=== PATIENT | male | born 1935 | race Caucasian/White ===

== ENCOUNTER → 2018-06-20 | Day surgery (SDC) | payer OTHER ==
[2018-05-29 08:28] VITALS: Ht 172.7 cm; Wt 77.3 kg
[~2018-06-20] VITALS: Ht 172.7 cm; Wt 77.3 kg
[~2018-06-20] MED LIST: 500ML BSS 0.3ML EPI 1:1000PF IRRIG ONE; ACETAMINOPHEN 325 MG TAB PO PRN; AMVISC PLUS 0.8ML SYRINGE INT OCU ONE; ATROPINE SULFATE 0.1 MG/ML 5ML SYR IV PRN; BSS FLUSH ONE; ENDOCOAT 0.85ML SYRINGE INT OCU ONE; EpHEDrine SULFATE INJ 50 MG/ML AMP IV PRN; EpINEphrine INJ 1MG/ML AMP 1 MG/ML AMP ONE; LACTATED RINGER'S 1000ML 500 ML IV SCH; LIDOCAINE 4% OP SOLN DROP CHARGE ONE; LIDOCAINE 4% OP SOLN DROP CHARGE OPR SCH; LIDOCAINE HCL 1% MPF 2 ML VIAL ONE; MIDAZOLAM HCL 1 MG/ML 2ML VIAL ONE; MIX: 4ML BSS 1ML EPI 1:1000 PF TOP ONE; MOXIFLOXACIN OPH SOLN PER DROP CHARGE ONE; POVIDONE-IODINE OP SOLN 30 ML BTL ONE; PROPARACAINE 0.5% OP SOLN PER DROP CHARGE OPR SCH; TOBRAMYCIN/DEXAMETHASONE OPH OINT PER APPLN CHARGE ONE; VITACAP26 PO; VITAMIN D PO; VITAMIN E PO
--- NOTE | 2018-06-20 06:38 | History & Physical Bridge - SC ---
H&P Re-Evaluation Bridge Note: I have examined the patient, reviewed the History & Physical and in the interval since the performance of the History & Physical I have noted the following changes of clinical significance: No changes noted
[2018-06-20] MEDS: PHENYLEPHRINE HCL 2.5% OP SOLN PER DROP CHARGE OPR SCH ×3 (06:48→06:58)
[2018-06-20] MEDS: TROPICAMIDE 1% OP SOLN PER DROP CHARGE OPR SCH ×3 (06:49→06:59)
[2018-06-20] MEDS: CYCLOPENTOLATE HCL 1% OP SOLN PER DROP CHARGE OPR SCH ×3 (06:50→07:00)
[2018-06-20] MEDS: MOXIFLOXACIN OPH SOLN PER DROP CHARGE OPR SCH ×3 (06:51→07:01)
--- NOTE | 2018-06-20 07:57 | [facility] Post Operative Brief Note ---
Immediate Operative Summary Operative Date Jun 20, 2018. Pre-Operative Diagnosis Right Eye Cataract Post-Operative Diagnosis same as preop Procedure(s) Performed Right Cataract Phacoemulsification With Intraocular Lens Implant Surgeon Dr. Hurtado Applications Engineering Manager Surgeon(s) none Estimated Blood Loss 0ml Findings Consistent with Post-Op Diagnosis Specimens none per surgeon Anesthesia Type MAC Complication(s) none Disposition Accompanied Pt To Recover: no Disposition:
--- NOTE | 2018-06-20 07:58 | [facility] Operative Report ---
Operative Report Date of Service Jun 20, 2018. Operative Report DATE OF OPERATION: 06/18/18 PREOPERATIVE DIAGNOSIS: Senile nuclear cataract, right eye POSTOPERATIVE DIAGNOSIS: Senile nuclear cataract, right eye PROCEDURE PERFORMED: Phacoemulsification with intraocular lens implantation, right eye SURGEON: Dr. Jayson Hurtado ANESTHESIA: Topical with 1% intracameral lidocaine and monitored anesthesia care COMPLICATIONS: None DESCRIPTION OF PROCEDURE: After positively identifying the patient both verbally and by wristband in the preoperative area, the right eye was marked as the operative eye. The patient was then brought back to the operating room by the anesthesia and nursing staff where they were given a drop of Lidocaine and betadine into the operative eye. They were then sterilely prepped and draped in the standard fashion typical for ophthalmic surgery. Steri-strips were placed along the upper eyelids to keep the lashes back, and a lid speculum was placed into the operative eye. At this point, a documented time out was performed with members of the ophthalmology, nursing, and anesthesia staffs all agreeing upon the correct patient, correct location for surgery, correct procedure, and correct type and power of intraocular lens to be implanted. The microscope was then swung into position. First, a paracentesis wound was made using a sideport blade. Then, in sequence, 1% preservative-free lidocaine followed by Endocoat viscoelastic was injected into the anterior chamber. Next , the main incision was made with a keratome blade in triplanar fashion. A sharp cystotome was introduced into the eye and used to create a tear in the anterior capsule, which was directed into a continuous curvilinear capsulorrhexis using Utrata forceps. Hydrodissection was then performed with BSS on a flat-tip cannula. Next, the phacoemulsification handpiece was introduced into the eye and used to remove the nucleus in a [id number] fashion. This was done without complication and then the irrigation-aspiration handpiece was introduced into the eye and used to remove all remaining cortical and epinuclear material. Amvisc was then injected into the anterior chamber as well as into the capsular bag and using the lens injector system, an MX60 22.5 D lens, serial number [id number], and expiration date 01/2021 was injected into the capsular bag and rotated into the correct position. Next, the irrigation- aspiration handpiece was used to remove all remaining Amvisc. BSS was used to hydrate the main wound, and then BSS was injected into the paracentesis site to reach physiologic pressure and then the main wound was checked and found to be watertight. The patient was given drops of Vigamox and Tobradex ointment into the operative eye, and then the surrounding area was cleaned and dried. A clear plastic shield was placed over the eye and the patient was then sat up and taken from the operating room by the anesthesia staff having tolerated the procedure well and suffering no complications. DISPOSITION: The patient was returned to the recovery room in stable condition. I attest to the content of the Intraoperative Record and any orders documented therein. Any exceptions are noted below.
--- NOTE | 2018-06-20 07:59 | Discharge Instructions-SurgCtr ---
Discharge Instructions Date of Service Jun 20, 2018. Visit Reason for Visit: Cataract Right Eye Discharge Discharge Diagnosis / Problem: right cataract Discharge Goals Goal(s): Decrease discomfort, Improve function Activity Recommendations Activity Limitations: as noted below Anesthesia . Post Anesthesia Instructions: If you have had General Anesthesia or IV Sedation: * Do not drive today. * Resume driving when surgeon permits. * Do not make important decisions or sign legal documents today. * Call surgeon for: 1. Temperature elevations greater than 101 degrees F. 2. Uncontrollable pain. 3. Excessive bleeding. 4. Persistent nausea and vomiting. 5. Medication intolerance (nausea, vomiting or rash). * For nausea and vomiting use only clear liquids such as: tea, soda, bouillon until nausea subsides, then gradually increase diet as tolerated. * If you have any concerns or questions, call your surgeon's office. If physician is unavailable and it is an emergency, call 911 or go to the nearest emergency room. . Instructions / Follow-Up Instructions / Follow-Up ACTIVITY RECOMMENDATIONS: * Light activities. * You may walk outside, read, watch television. * You may notice redness on the white part of the eye and some blurry vision - this is normal. MEDICATIONS: Resume previous medications unless instructed otherwise by your surgeon. Start all eye drops at 10 am today: * Eye drops (today): Prednisone - one drop in operative eye every 2 hours while awake Ofloxacin - one drop in operative eye every 2 hours while awake Ketorolac - one drop in operative eye daily SPECIAL CARE INSTRUCTIONS: * Tape plastic shield over eye to sleep at night. Call your doctor at with any concerns or problems. FOLLOW UP VISIT: Follow-up with Dr Hurtado at [facility] as scheduled. Diet Recommendations Home Diet: no limitations Procedures Procedures Performed: Right Cataract Phacoemulsification With Intraocular Lens Implant Pending Studies Studies pending at discharge: no Medical Emergencies . Who to Call and When: Medical Emergencies: If at any time you feel your situation is an emergency, please call 911 immediately. . Non-Emergent Contact Non-Emergency issues call your: Surgeon . . "Provider Documentation" section prepared by Jayson Hurtado. .
--- NOTE | 2018-06-20 08:20 | Anesthesia Progress Nt - [facility] ---
Anesthesia Post Op Note Date & Time Jun 20, 2018 at 08:20 Vital Signs Pain Intensity: 0 Vital Signs Past 12 Hours Date Time Temp Pulse Resp B/P (MAP) Pulse Ox O2 Delivery O2 Flow Rate FiO2 06/20/18 08:05 37 61 16 146/80 (102) 98 Room Air 06/20/18 06:42 36.6 69 18 152/96 (114) 95 Room Air Notes Mental Status: alert / awake / arousable, participated in evaluation Pt Amnestic to Procedure: Yes Nausea / Vomiting: adequately controlled Pain: adequately controlled Airway Patency, RR, SpO2: stable & adequate BP & HR: stable & adequate Hydration State: stable & adequate Anesthetic Complications: no major complications apparent
[2018-06-20 08:24] VITALS: BP 151/84; PULSE 56; O2SAT 96
== END | disposition home or self-care (01) ==
LOC: X.SURG 06:34
PROVIDERS: ATTEND Ophthalmology
DX: H25.11 Age-related nuclear cataract, right eye (principal); Z86.718 Personal history of other venous thrombosis and embolism; M19.90 Unspecified osteoarthritis, unspecified site

== ENCOUNTER 2025-06-06 09:35 | Observation (INO) ==
--- NOTE | 2025-06-06 09:48 | Emergency Department Note ---
Impression & Plan Vertiginous syndrome, Ambulatory dysfunction ED Provider Note Name: SONIA ALEXIS Age: 89 Sex: Male Arrives Via: Ambulance Informant: patient, family ED Provider: Clay oGnzalez MD Chief Complaint: Dizziness Impression: As per impressions above Medical Decision Makin-year-old relatively healthy male with no significant history arrives for acute onset sudden nature dizziness. Admits he woke up and as he turned over he realized he was severely vertiginous. Spinning world. He has never had any vertigo issues before. On examination he does not have any acute neurologic deficits, however on repeat evaluation patient is complaining of inability to use his right arm properly. He does have swelling of the right hand but that is from a recent injury. I was able to lift his arm he is able to move his fingers just as it does not feel right. After moving the arm around a bit though he seems to improve regained use and it was feeling better again. Family also notes that has been having trouble getting to the bathroom while in the department. He was given some meclizine with really minimal improvement. CT of the head with angiography is was unremarkable. Laboratory workup is all unremarkable. While does seem less likely this is stroke given the findings the patient has never had any symptoms like this before his age and the fact that he is having some ambulatory issues I think it reasonable to hospitalize to further rule out stroke and continue monitoring. Patient and his family are comfortable with this plan. Triage/Nursing Notes reviewed by Me External Chart Review by me: No recent external chart available Differential:Benign positional vertigo, dehydration, hypovolemia, anemia, tumor, infection, hypoglycemia, electrolyte abnormalities, cardiac sources, intracerebral event, toxicologic, neurologic, as well as other pathologies. Vital Signs: reviewed and remarkable for hypertension did improve while in department Interventions: Meclizine p.o., normal saline bolus Labs:ED labs Reviewed by me and remarkable for no significant abnormalities Imaging:CT of the head without contrast as per my informal interpretation reveals no intracranial hemorrhage or mass effect. Confirmed by radiologist. EKG:As per my interpretation. Indication strokelike symptoms. Sinus bradycardia 58 bpm with 414 QTc. No ectopy no ischemia. EKG from September 11, 2023 is unchanged. Cardiac/Tele Monitoring: Cardiac Monitoring: An Order was placed for continuous cardiac monitoring. The monitor shows a rate of 60 with a normal sinus rhythm. Consults:Discussed with hospital service for further management Plan: Disposition:Hospitalization. Condition: Fair History of Present Illness: Patient arrives for evaluation of acute dizziness. Patient notes he awoke this morning while laying in bed he turned on his right side and immediately was hit with severe spinning feeling. Notes he felt like he was on a [place] wheel. If he lays still the symptoms eventually go away but as soon as he starts moving he begins to have severe dizziness again. He denies any headache, visual disturbance otherwise, stroke like symptoms such as slurred speech or weakness of arms or legs, fevers, chills, nausea, vomiting, back pain, abdominal pain or other concerning falls or traumas. Patient has no history of stroke. He notes he has no significant medical issues and takes no medications on a daily basis. Patient does have swelling of the right hand. He states is been consistently swollen since he injured it a month ago. It has improved significantly though and is not as bruised as it was. Past Medical History: None Home Medications: None Allergies: No known drug allergy Vitals:Blood Pressure: 173/86, Pulse 59, RR 18, T 36.7C, O2 99% on RA Physical Exam: GENERAL: Patient is well appearing and in no acute distress. HEAD: AT/NC EENT: Normal left TM, unable to visualize right TM. Equal pupils bilaterally. Slight nystagmus both directions. RESPIRATORY: No dyspnea. Clear to auscultation and equal bilaterally. CARDIOVASCULAR: Regular rate and rhythm.No murmur appreciated. EXTREMITIES: Patient does have some mild edema to the top of the right hand. No redness, warmth, tenderness palpation. Healing laceration over palm of hand. Normal motion all extremities, no cyanosis, no edema. NEUROLOGIC: Alert and oriented. No focal neurologic deficits appreciated SKIN: No rash, no jaundice, no diaphoresis. PSYCH: Appropriate GCS: 15 ED Course: Times/Reassessments: Patient is feeling well however he is still having some difficulty sitting up especially even going to the bathroom feeling very off stable/balance. Clay Gonzalez MD Past Med/Surg History Problem List (Updated 06/06/25 @ 20:39 by Clay Gonzalez MD) Ambulatory dysfunction (Acute) Vertiginous syndrome (Acute) BPPV (benign paroxysmal positional vertigo) Encounter for pre-operative examination No known health problems (Chronic 06/03/13) Medical History Left cataract Lyme disease H/O 2012 Surgical History History of appendectomy History of tooth extraction BOTTOM TEETH REMOVED H/O right cataract extraction R cataract on 06/20/18- given 2mg of versed without issues Family History (Updated 06/06/25 @ 15:53 by Clay Akhtar MD, PhD) Father , at 89 years of age from natural causes. No problems noted. Mother , at 60 years of age from hepatocellular carcinoma in the absence of ETOH (ab)use. No problems noted. Social History (Updated 06/06/25 @ 15:54 by Clay Akhtar MD, PhD) Smoking Status: Never smoker Second Hand Exposure: No; Do You Dip or Chew Tobacco: No; Hx Alcohol Use: No Hx Substance Use: No Preferred Language: Mohawk Communication Ability: Effective Fire Fighter Required: No Beliefs That Will Affect Care: None marital status: Current Living Situation: Spouse current occupational status: retired How many Children do You have: 2 How many Children do You have Comment: 1 son (51yrs) and 1 daughter (56yrs), alive and well. Feels Safe at Home: Yes Assistive Devices: Glasses Allergies Allergies Allergy/AdvReac Type Severity Reaction Status Date / Time No Known Allergies Allergy Verified 08/01/18 09:37 Home Meds Home Medications Medication Instructions Recorded Confirmed cholecalciferol (vitamin D3) 50 2,000 unit PO QPM 07/26/18 06/06/25 mcg (2,000 unit) capsule (Vitamin D3) Elderberry 1 cap PO DAILY 09/11/23 06/06/25 red beet 0 mg PO DAILY 06/06/25 06/06/25 Results & Data (ED) Vital Signs Vital Signs - 24 hr 06/06/25 09:44 06/06/25 09:52 06/06/25 12:01 Temperature 36.7 C Temperature Source Oral Pulse Rate 59 L Pulse Rate [Apical] 55 L 55 L Respiratory Rate 18 18 18 Respiratory Effort / Characteristics Non-Labored Spontaneous Non-Labored Spontaneous Non-Labored Spontaneous Respiratory Depth Normal Normal Normal Blood Pressure 173/86 H Blood Pressure [Right Arm] 173/86 H 138/73 Blood Pressure Mean 115 Blood Pressure Mean [Right Arm] 115 94 Blood Pressure Position Sitting Blood Pressure Position [Right Arm] Sitting Lying Pulse Oximetry 99 99 98 Oxygen Delivery Method Room Air Room Air Room Air Sepsis Recent Fever Within 48 Hours No Sepsis New/Unexplained Change in Mental Status No Sepsis Action Taken by Nursing No Action Required 06/06/25 12:01 Temperature Temperature Source Pulse Rate 56 L Pulse Rate [Apical] Respiratory Rate Respiratory Effort / Characteristics Respiratory Depth Blood Pressure Blood Pressure [Right Arm] Blood Pressure Mean Blood Pressure Mean [Right Arm] Blood Pressure Position Blood Pressure Position [Right Arm] Pulse Oximetry Oxygen Delivery Method Sepsis Recent Fever Within 48 Hours Sepsis New/Unexplained Change in Mental Status Sepsis Action Taken by Nursing Laboratory Data 06/06/25 09:52 06/06/25 09:52 Lab Results 06/06/25 06/06/25 06/06/25 Range/Units 09:52 09:57 10:34 WBC 7.48 (4.8-10.8) K/ul RBC 4.70 (4.70-6.10) M/uL Hgb 13.9 L (14.0-18.0) g/dl POC Hgb 14.6 (14.0-18.0) g/dl Hct 42.3 (42.0-52.0) % POC Hct 43 (42-52) % MCV 90.0 (80.0-100.0) fL MCH 29.6 (25.0-34.0) pg MCHC 32.9 (32.0-36.0) g/dL RDW Std Deviation 41.1 (36.4-46.3) fL RDW Coeff of Skylar 12.4 (11.5-14.5) % Plt Count 310 (130-400) K/uL MPV 8.5 L (9.4-12.4) fL Immature Gran % (Auto) 0.3 % Neut % (Auto) 71.1 % Lymph % (Auto) 18.4 % Gila % (Auto) 8.6 % Eos % (Auto) 0.9 % Baso % (Auto) 0.7 % Neut # (Auto) 5.32 (1.40-6.50) K/uL Lymph # (Auto) 1.38 (1.20-3.40) K/uL Gila # (Auto) 0.64 H (0.11-0.59) K/uL Eos # (Auto) 0.07 (0.00-0.50) K/uL Baso # (Auto) 0.05 (0.00-0.20) K/uL Immature Gran # (Auto) 0.02 (0.01-0.20) K/uL PT Cancelled 10.8 INR Cancelled 1.0 POC Sodium 139 (135-144) mmol/L Sodium 139 (136-145) mmol/L POC Potassium 3.9 (3.3-5.0) mmol/L Potassium 3.9 (3.5-5.1) mmol/L POC Chloride 105 (101-112) mmol/L Chloride 107 (98-107) mmol/L Carbon Dioxide 25 (21-32) mmol/L POC Total CO2 24 (24-31) mmol/L Anion Gap 7 (3-11) POC Anion Gap 16.0 (16-25) mmol/L POC BUN 21 H (7-18) mg/dl BUN 20 (6-23) mg/dl Creatinine 1.06 (0.6-1.4) mg/dl POC Creatinine 1.1 (0.6-1.3) mg/dl Est Cr Clr Drug Dosing 45.9 ml/min eGFR 67.92 BUN/Creatinine Ratio 18.9 (10-20) Glucose 134 H (70-99(Fasting)) mg/dl POC Glucose (other) 132 H (70-99) mg/dl Estimat Average Glucose 126 mg/dl Hemoglobin A1c 6.0 H (4.5-5.6) % Calcium 9.1 (8.6-10.3) mg/dl POC Ioniz Calcium Ar 1.13 (1.12-1.32) mmol/l Magnesium 2.1 (1.7-2.4) mg/dl Total Bilirubin 1.1 H (0.2-1.0) mg/dl Direct Bilirubin 0.1 (0-0.2) mg/dl AST 32 (13-39) U/L ALT 47 (7-52) U/L Alkaline Phosphatase 54 (34-104) U/L Troponin I High Sens 3.8 (0-20) pg/ml Total Protein 6.4 (6.0-8.3) gm/dl Albumin 3.9 (3.4-5.0) gm/dl TSH 3.410 (0.300-4.500) uIu/ml Urine Color Urine Appearance (Clear) Urine pH (4.5-7.5) Ur Specific [place] (1.000-1.030) Urine Protein (Negative) Urine Glucose (UA) (Negative) Urine Ketones (Negative) Urine Blood (Negative) Urine Nitrite (Negative) Urine Bilirubin (Negative) Urine Urobilinogen (Negative) Ur Leukocyte Esterase (Negative) Urine Comment 06/06/25 Range/Units 11:12 WBC (4.8-10.8) K/ul RBC (4.70-6.10) M/uL Hgb (14.0-18.0) g/dl POC Hgb (14.0-18.0) g/dl Hct (42.0-52.0) % POC Hct (42-52) % MCV (80.0-100.0) fL MCH (25.0-34.0) pg MCHC (32.0-36.0) g/dL RDW Std Deviation (36.4-46.3) fL RDW Coeff of Skylar (11.5-14.5) % Plt Count (130-400) K/uL MPV (9.4-12.4) fL Immature Gran % (Auto) % Neut % (Auto) % Lymph % (Auto) % Gila % (Auto) % Eos % (Auto) % Baso % (Auto) % Neut # (Auto) (1.40-6.50) K/uL Lymph # (Auto) (1.20-3.40) K/uL Gila # (Auto) (0.11-0.59) K/uL Eos # (Auto) (0.00-0.50) K/uL Baso # (Auto) (0.00-0.20) K/uL Immature Gran # (Auto) (0.01-0.20) K/uL PT INR POC Sodium (135-144) mmol/L Sodium (136-145) mmol/L POC Potassium (3.3-5.0) mmol/L Potassium (3.5-5.1) mmol/L POC Chloride (101-112) mmol/L Chloride (98-107) mmol/L Carbon Dioxide (21-32) mmol/L POC Total CO2 (24-31) mmol/L Anion Gap (3-11) POC Anion Gap (16-25) mmol/L POC BUN (7-18) mg/dl BUN (6-23) mg/dl Creatinine (0.6-1.4) mg/dl POC Creatinine (0.6-1.3) mg/dl Est Cr Clr Drug Dosing ml/min eGFR BUN/Creatinine Ratio (10-20) Glucose (70-99(Fasting)) mg/dl POC Glucose (other) (70-99) mg/dl Estimat Average Glucose mg/dl Hemoglobin A1c (4.5-5.6) % Calcium (8.6-10.3) mg/dl POC Ioniz Calcium Ar (1.12-1.32) mmol/l Magnesium (1.7-2.4) mg/dl Total Bilirubin (0.2-1.0) mg/dl Direct Bilirubin (0-0.2) mg/dl AST (13-39) U/L ALT (7-52) U/L Alkaline Phosphatase (34-104) U/L Troponin I High Sens (0-20) pg/ml Total Protein (6.0-8.3) gm/dl Albumin (3.4-5.0) gm/dl TSH (0.300-4.500) uIu/ml Urine Color Yellow Urine Appearance Clear (Clear) Urine pH 8.5 H (4.5-7.5) Ur Specific [place] 1.040 H (1.000-1.030) Urine Protein Negative (Negative) Urine Glucose (UA) Negative (Negative) Urine Ketones Negative (Negative) Urine Blood Negative (Negative) Urine Nitrite Negative (Negative) Urine Bilirubin Negative (Negative) Urine Urobilinogen Negative (Negative) Ur Leukocyte Esterase Negative (Negative) Urine Comment Administered Medications Discontinued Medications Sodium Chloride (Nss) 1,000 mls @ 999 mls/hr IV .Q1H1M ONE Stop: 06/06/25 10:43 Last Infusion: 06/06/25 15:44 Dose: Infused Documented By: Admin: 06/06/25 10:00 Dose: 999 mls/hr Documented By: LEE Ioversol (Optiray 320 125ml) 120 ml IV ONCE ONE Stop: 06/06/25 10:13 Last Admin: 06/06/25 10:13 Dose: 120 ml Documented By: ZEENAT Meclizine HCl (Meclizine Hcl 25 Mg Tab) 25 mg PO NOW STA Stop: 06/06/25 09:44 Last Admin: 06/06/25 10:00 Dose: 25 mg Documented By: LEE Imaging Data Radiologist's Impression: Head CTA 06/06/25 09:43 CT angio head wo/w CLINICAL HISTORY: acute vertiginous symptoms, concern stroke/dissect COMPARISON STUDY: None FINDINGS: Noncontrast head CT: No intracranial hemorrhage seen. No mass effect, midline shift, or hydrocephalus. No skull fracture seen. Visualized paranasal sinuses and mastoid air cells are clear. CTA: The left vertebral artery is dominant and the right vertebral artery is diminutive beyond PICA, anatomic variant. Distal vertebral arteries and distal internal carotid arteries show no significant narrowing or occlusion. Basilar artery is widely patent. Anterior, middle, and posterior cerebral arteries are patent bilaterally. No intracranial aneurysm seen. Cerebral venous sinuses opacify normally. IMPRESSION: 1. No acute findings. 2. No significant arterial narrowing or occlusion seen at the brain. ACT 112: Negative or not required by law. Electronically signed by: Stevenson Kahn M.D. 06/06/2025 10:28 AM Neck CTA 06/06/25 09:43 CT ANGIOGRAPHY OF THE NECK WITH CONTRAST CLINICAL HISTORY: acute vertiginous symptoms, concern stroke/dissection COMPARISON STUDY: No previous studies for comparison. Technique: CT angiography of the carotid and vertebral arteries was obtained using [employer] and 3D reconstruction on an independent workstation. NASCET criteria was utilized. Automated exposure control was utilized for the study. A dose lowering technique was utilized adhering to the principles of ALARA. Findings: Visualized lung apices are unremarkable. There is no cervical lymphadenopathy. There are no cervical spine fractures. There is minimal plaque within the proximal left internal carotid artery without stenosis. There is moderate noncalcified plaque within the mid cervical left internal carotid artery without stenosis. 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 The left vertebral artery is dominant. No vertebral artery dissection is present. CTA of the head will be reported separately. There is moderate stenosis of the intracranial portion of the right vertebral artery. IMPRESSION: 1. No stenoses within the bilateral common carotid, cervical internal carotid or cervical vertebral arteries. 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 2. No vertebral artery dissection. 3. 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 A short segment dissection is considered less likely. ACT 112: Negative or not required by law. Electronically signed by: Dwight Davila M.D. 06/06/2025 10:38 AM Discharge Plan Visit Data Chief Complaint: Dizziness Stated Complaint: DIZZINESS, NAUSEA ED Provider: Clay Gonzalez Discharge Problem: Vertiginous syndrome, Ambulatory dysfunction Patient Disposition: Admitted As Inpatient Condition: Fair Discharge Instructions Interventions: ED Discharge Assessment Last Done: 06/06/25 15:46
[2025-06-06] MEDS: SODIUM CHLORIDE 0.9% 1,000 ML IV ONE (10:00)
[2025-06-06] MEDS: MECLIZINE HCL 25 MG TAB PO STA (10:00)
[2025-06-06 10:08] LABS: Hematocrit (blood only) 42.3 % (42.0-52.0); Hemoglobin 13.9 g/dl (14.0-18.0); Immature Granulocytes # (auto) 0.02 K/uL (0.01-0.20); Immature Granulocytes % (auto) 0.3 %; Mean Corpuscular Hemoglobin 29.6 pg (25.0-34.0); Mean Corpuscular Volume 90.0 fL (80.0-100.0); Platelet Count 310 K/uL (130-400); RDW Standard Deviation 41.1 fL (36.4-46.3); Red Blood Count 4.70 M/uL (4.70-6.10); White Blood Count 7.48 K/ul (4.8-10.8)
[2025-06-06] MEDS: OPTIRAY 320 125ml IV ONE (10:13)
--- NOTE | 2025-06-06 10:29 | CT Scan Report ---
CT angio head wo/w CLINICAL HISTORY: acute vertiginous symptoms, concern stroke/dissect COMPARISON STUDY: None FINDINGS: Noncontrast head CT: No intracranial hemorrhage seen. No mass effect, midline shift, or hydrocephalus . No skull fracture seen. Visualized paranasal sinuses and mastoid air cells are clear. CTA: The left vertebral artery is dominant and the right vertebral artery is diminutive beyond PICA, anatomic variant. Distal vertebral arteries and distal internal carotid arteries show no significant narrowing or occlusion. Basilar artery is widely patent. Anterior, middle, and posterior cerebral art eries are patent bilaterally. No intracranial aneurysm seen. Cerebral venous sinuses opacify normally . IMPRESSION: 1. No acute findings. 2. No significant arterial narrowing or occlusion seen at the brain. ACT 112: Negative or not required by law. Electronically signed by: Stevenson Kahn M.D. 06/06/2025 10:28 AM
[2025-06-06 10:30] LABS: Alanine Aminotransferase 47.0 U/L (7-52); Alkaline Phosphatase 54.0 U/L (34-104); Anion Gap 7.0 (3-11); Blood Urea Nitrogen 20.0 mg/dl (6-23); Calcium 9.1 mg/dl (8.6-10.3); Carbon Dioxide 25.0 mmol/L (21-32); Chloride 107.0 mmol/L (98-107); Creatinine Clr Calc Pharmacy 45.9 ml/min; Glucose 134.0 mg/dl (70-99(Fasting)); Magnesium 2.1 mg/dl (1.7-2.4); Potassium 3.9 mmol/L (3.5-5.1); Sodium 139.0 mmol/L (136-145)
[2025-06-06 10:33] LABS: Bilirubin,Total 1.1 mg/dl (0.2-1.0)
[2025-06-06 10:38] LABS: Total Protein 6.4 gm/dl (6.0-8.3)
--- NOTE | 2025-06-06 10:40 | CT Scan Report ---
CT ANGIOGRAPHY OF THE NECK WITH CONTRAST CLINICAL HISTORY: acute vertiginous symptoms, concern stroke/dissection COMPARISON STUDY: No previous studies for comparison. Technique: CT angiography of the carotid and vertebral arteries was obtained using [employer] and 3D rec onstruction on an independent workstation. NASCET criteria was utilized. Automated exposure control was utilized for the study. A dose lowering technique was utilized adhering to the principles of ALA RA. Findings: Visualized lung apices are unremarkable. There is no cervical lymphadenopathy. There are no cervical spine fractures. There is minimal plaque within the proximal left internal carotid artery w ithout stenosis. There is moderate noncalcified plaque within the mid cervical left internal carotid artery without stenosis. 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 The left vertebral artery is dominant. N o vertebral artery dissection is present. CTA of the head will be reported separately. There is moder ate stenosis of the intracranial portion of the right vertebral artery. IMPRESSION: 1. No stenoses within the bilateral common carotid, cervical internal carotid or cervical vertebral a rteries. 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 2. No vertebral artery dissection. 3. 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 A short segment disse ction is considered less likely. ACT 112: Negative or not required by law. Electronically signed by: Dwight Davila M.D. 06/06/2025 10:38 AM
[2025-06-06 10:45] LABS: Thyroid Stimulating Hormone 3.41 uIu/ml (0.300-4.500)
[2025-06-06 11:13] LABS: INR 1.0 (0.9-1.1); Prothrombin Time 10.8 Seconds (9.0-12.0)
[2025-06-06 11:21] LABS: Appearance Urine Clear (Clear); Glucose Urine UA Negative (Negative)
[2025-06-06] MEDS ORDERED: ACETAMINOPHEN 325 MG TAB PO PRN (12:38)
[2025-06-06 13:42] LABS: Hemoglobin A1C 6.0 % (4.5-5.6)
--- NOTE | 2025-06-06 15:17 | History & Physical Report ---
Date of Service June 06, 2025 Assessment & Plan (1) BPPV (benign paroxysmal positional vertigo): Plan: As above in the HPI. History of Present Illness Chief Complaint: "I woke up at 6:00am today (06/06/2025). I was in bed and I turned from my left side to my right side. All of a sudden, the room was spinning [id number] very very fast. I closed my eyes and the spinning stopped. I opened my eyes and the spinning started up again. The spinning lasted for 1 minute. Then it went away. I never felt like that before in my life. I then got up and walked to the hallway. I had to hold the wagner for support; otherwise, I would have fallen down. I did not fall down. I told my that I needed to go to the hospital to get checked out. So, my called the ambulance and the ambulance brought me to [facility]. I don't know what caused this fast spinning in the first place. I felt completely well the day before and last night (06/05/2025, 9:00pm) when I went to bed. I didn't eat any food or drink since last night (06/05/2025, 6:00pm). But I don't feel hungry at all. I have not had an appetite for a long time now; my is sick and I worry about her a lot. Maybe that is why I don't feel hungry. I can smell the food and I can taste the food just fine, no problems, and the food smells and tastes great, but it does not make me want to eat. I have only lost 5 pounds in the past year. I don't sweat at night. I only sweat at daytime if I am exerting myself outside and it is hot or warm outside. Maybe I am a little dehydrated. Could that have caused the room to spin this morning? I came to [facility] ER around 9:30am today. I felt that the room spinning was slower in [facility]. I did not have any nausea or vomit in [facility]. I did not have any nausea or vomit in my home, where the room spinning was very fast. The only thing different after I got to [facility] ER and int o this bed (cf., [facility] ER bed #C11B) was that I had this headache all over my head, left and right, front and back of my head, and it lasted about 1 minute. Then it went away. My vision was fine with my glasses on. I did not have any blurry vision. I was not seeing double in [facility] ER or at home this morning (06/06/2025, 6:00am) when the room was spinning very fast. My speech was fine and I could talk normally to my , no problem there. I am right-handed, and my right hand is swollen still and not as strong since I fell last month and had to have 16 stitches in the palm of my right hand, and I had to twist my fingers back to their normal position after they got bent out of shape when I fell down, but other than that, I can do everything with my right hand like I always have, including eating with a spoon, holding a cup, writing with a pen, putting on my clothes and taking them off, going to the bathroom, getting up from a chair or my bed. I don't use a cane or walker. I can still drive a car. I just want to make sure that I did not have a stroke, that a stroke was causing the room to spin so fast this morning (06/06/2025, 6:00am)." Primary Care Provider: Tomas Najera 89 years old male with PMH of FULL CODE @ home, overweight with BMI 26.5 (height 170.18 cm; weight 76.8 kg), who takes no medications at home, who reports: "I woke up at 6:00am today (06/06/2025). I was in bed and I turned from my left side to my right side. All of a sudden, the room was spinning [id number] very very fast. I closed my eyes and the spinning stopped. I opened my eyes and the spinning started up again. The spinning lasted for 1 minute. Then it went away. I never felt like that before in my life. I then got up and walked to the hallway. I had to hold the wagner for support; otherwise, I would have fallen down. I did not fall down. I told my that I needed to go to the hospital to get checked out. So, my called the ambulance and the ambulance brought me to [facility] ER. I don't know what caused this fast spinning in the first place. I felt completely well the day before and last night (06/05/2025, 9:00pm) when I went to bed. I didn't eat any food or drink since last night (06/05/2025, 6:00pm). But I don't feel hungry at all. I have not had an appetite for a long time now; my is sick and I worry about her a lot. Maybe that is why I don't feel hungry. I can smell the food and I can taste the food just fine, no problems, and the food smells and tastes great, but it does not make me want to eat. I have only lost 5 pounds in the past year. I don't sweat at night. I only sweat at daytime if I am exerting myself outside and it is hot or warm outside. Maybe I am a little dehydrated. Could that have caused the room to spin this morning? I came to [facility] ER around 9:30am today. I felt that the room spinning was slower in [facility]. I did not have any nausea or vomit in [facility]. I did not have any nausea or vomit in my home, where the room spinning was very fast. The only thing different after I got to [facility] and into this bed (cf., [facility] ER bed #C11B) was that I had this he adache all over my head, left and right, front and back of my head, and it lasted about 1 minute. Then it went away. My vision was fine with my glasses on. I did not have any blurry vision. I was not seeing double in [facility] ER or at home this morning (06/06/2025, 6:00am) when the room was spinning very fast. My speech was fine and I could talk normally to my , no problem there. I am right-handed, and my right hand is swollen still and not as strong since I fell last month (05/08/2025), and had to have 16 stitches in the palm of my right hand done right here in [facility] ER, and I had to twist my fingers back to their normal position after they got bent out of shape--no broken fingers or bones--when I fell down outside my home, but other than that, I can do everything with my right hand like I always have, including eating with a spoon, holding a cup, writing with a pen, putting on my clothes and taking them off, going to the bathroom, getting up from a chair or my bed. I don't use a cane or walker. I can still drive a car. I just want to make sure that I did not have a stroke, that a stroke was causing the room to spin so fast this morning (06/06/2025, 6:00am)." Patient denies antecedent/coincident fevers, chills, diaphoresis, cough, wheeze, sore throat, hemoptysis, chest pains, palpitations, pleurisy, nausea, vomiting, diarrhea, abdominal pain, pelvic pain, hematemesis, hematochezia, melena, hematuria, dysuria, frequency, urgency, visual changes, hearing changes, weakness, falls, syncope, trauma, travel history, sick contacts, or food/drug ingestions novel or new. All other review of systems are reported as negative by the patient on observation date 06/06/2025. In [facility] ER bed #C11B, patient was afebrile @ 36.7 degrees Celsius, HR 59, RR 18, O2 sat 99% on room air, and BP 173/86 (06/06/2025, 9:52am). Exam was negative for nystagmus, gaze paresis, anisocoria, miosis, mydriasis, hyphema, chemosis, scleral injection, conjunctivitis, or pterygium. Sasha-Hallpike / Marty maneuvers did not provoke nystagmus (horizontal, vertical, or rotary), nausea, vomiting, headache, visual changes, etc. Labs in [facility] ER bed #C11B included: WBC 7.48, N71 L18 M9 E1 B1, Hb 13.9, MCV 90.0, MCHC 32.9, platelet 310 (06/06/2025, 9:52am). INR 1.0 (06/06/2025, 9:52am). Na 139, K 3.9, BUN 20, creatinine 1.06, glucose 134, Ca 9.1, Mg 2.1, AST 32, ALT 47, ALK PHOS 54, TBili 1.1 (06/06/2025, 9:52am). HbA1c 6.0% (06/06/2025, 9:52am). TSH 3.410 uIU/mL (06/06/2025, 9:52am). U/A: clear yellow, LE-, nitrite- (06/06/2025, 9:52am). Additional testing in [facility] ER bed #C11B included: CTA head (06/06/2025, 9:43am): 1. No acute findings. 2. No significant arterial narrowing or occlusion seen at the brain. CTA neck (06/06/2025, 9:43am): 1. No stenoses within the bilateral common carotid, cervical internal carotid or cervical vertebral arteries. 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 2. No vertebral artery dissection. 3. 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 A short segment dissection is considered less likely. MRI brain without IV contrast (06/06/2025, 12:38pm): 1. No acute intracranial abnormality. Patient was subsequently placed in OBSERVATION on the hospitalist service @ [facility] on 06/06/2025 with the following diagnosis: 1. Benign paroxysmal positional vertigo (BPPV). To address #1, patient was started on meclizine 25mg PO x 1 dose (06/06/2025, 10:00am) in [facility] ER bed #C11B, and reported no change after receiving this medication. Patient reported that he would wait to see if BPPV recurs before taking another dose of meclizine 25mg as patient does not take any medications at home at all. Allergies Allergy/AdvReac Type Severity Reaction Status Date / Time No Known Allergies Allergy Verified 08/01/18 09:37 Home Medications Medication Instructions Recorded Confirmed Type cholecalciferol (vitamin D3) 50 2,000 unit PO QPM 07/26/18 06/06/25 History mcg (2,000 unit) capsule (Vitamin D3) Elderberry 1 cap PO DAILY 09/11/23 06/06/25 History red beet 0 mg PO DAILY 06/06/25 06/06/25 History Past Med/Surg History Problem List (Updated 06/06/25 @ 15:56 by Clay Akhtar MD, PhD) BPPV (benign paroxysmal positional vertigo) Encounter for pre-operative examination No known health problems (Chronic 06/03/13) Medical History Left cataract Lyme disease H/O 2012 Surgical History History of appendectomy History of tooth extraction BOTTOM TEETH REMOVED H/O right cataract extraction R cataract on 06/20/18- given 2mg of versed without issues Family History (Updated 06/06/25 @ 15:53 by Clay Akhtar MD, PhD) Father , at 89 years of age from natural causes. No problems noted. Mother , at 60 years of age from hepatocellular carcinoma in the absence of ETOH (ab)use. No problems noted. 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 Feels Safe at Home: Yes Assistive Devices: Denture - Lower and Glasses Review of Systems Constitutional: As above in the HPI. Physical Exam Constitutional: General appearance: Comfortable, coherent, cooperative. Wide awake and alert. Not confused, lethargic, or obtunded. Speaks in complete, fluent, and articulate sentences without pause, interruption, cough, or wheeze. HEENT: Normocephalic; atraumatic. EOMI. PERRL. No nystagmus, gaze paresis, anisocoria, miosis, mydriasis, hyphema, chemosis, scleral icterus, conjunctivitis, or pterygium. No otorrhea or rhinorrhea. No pharyngeal discharge. Neck: Supple, no stridor, bruit, goiter, JVD, or HJR. Lymph: No lymphadenopathy. Chest: Symmetric rise and fall with respirations. Non-tender to palpation. Lungs: Clear to auscultation and percussion. No audible wheeze, pectoriloquy, increase in tactile fremitus, or flatness/dullness to percussion at the bases. Heart: RRR, S1S2, no S3 or S4. Grade II/ early systolic murmur @ LLSB without radiation to the carotids, axilla, or back, and which remains invariant in regards to the respiratory cycle. Abd: Soft, non-tender, non-distended. No rebound, guarding, Lovelace's sign, or organomegaly. Bowel sounds auscultated in all 4 quadrants. Ext: No clubbing, cyanosis, or edema. 2+ pedal pulses bilaterally. Skin: No decubitus ulcer, exanthem, or enanthem Neuro: Alert and oriented in regards to person, place, time, or situation. 5/5 motor strength in all 4 extremities, both proximally and distally. Urology: No christensen catheter. No urethral discharge. Psych: No suicidal ideation. No homicidal ideation. Results & Data Results & Data Vital Signs (Past 12 Hours) Vital Signs Temp Pulse Pulse Resp BP BP Pulse Ox 06/06/25 14:42 55 L 18 149/82 H 98 06/06/25 12:01 56 L 06/06/25 12:01 55 L 18 138/73 98 06/06/25 09:52 55 L 18 173/86 H 99 06/06/25 09:44 36.7 C 59 L 18 173/86 H 99 O2 Del Method 06/06/25 14:42 Room Air 06/06/25 12:01 06/06/25 12:01 Room Air 06/06/25 09:52 Room Air 06/06/25 09:44 Room Air Laboratory Results As above in the HPI. Diagnostic Findings As above in the HPI. Medications Administered As above in the HPI. Code Status & VTE Plan VTE Prophylaxis Plan VTE Prophylaxis will be ordered: Yes PG Care Time/CCT Total # of Minutes Spent Total Time Spent with Patient: Total time spent is greater than 50% in coordination of care (as documented) at patient's floor/unit and/or counseling patient: Coding Level of Care Code 45593 INT INP/OBS CARE 2MIN Diagnoses BPPV (benign paroxysmal positional vertigo) H81.10
--- NOTE | 2025-06-06 15:31 | Magnetic Resonance Report ---
MRI OF THE BRAIN WITHOUT IV CONTRAST CLINICAL HISTORY: Dizziness. Vertigo. COMPARISON STUDY: CT of the brain dated 06/06/2025 TECHNIQUE: MRI of the brain was performed utilizing various T1 and T2-weighted sequences in the axial , sagittal, and coronal planes. IV contrast was not administered for this examination. FINDINGS: Brain parenchyma: There is age-related involutional change noting minimal microangiopathic disease. T here is no hemorrhage or mass effect. There is no restricted diffusion to suggest acute ischemia. Gra y-white matter differentiation is preserved. No extra-axial fluid collection is seen. The cerebellar tonsils are normal in configuration. Ventricles, sulci, and cisterns: Prominent secondary to involutional change. Pituitary and sella: Unremarkable. Intracranial vasculature: Normal flow voids are maintained at the skull base. Orbits: The bony orbits are grossly intact. Orbital contents are normal in appearance noting bilatera l ocular lens implants. Sinuses and mastoids: Clear. Calvarium: Unremarkable. Cervical cord: Partially visualized cervical spinal cord is normal in morphology and signal intensity . IMPRESSION: No acute intracranial abnormality. ACT 112: Negative or not required by law. Electronically signed by: Munir Kennedy M.D. 06/06/2025 3:30 PM
[2025-06-06] MEDS: CHOLECALCIFEROL 25 MCG (1000 UNITS) TAB PO SCH (21:23)
[2025-06-06] MEDS: HEPARIN SOD 5,000 UNIT/0.5 ML VIAL SQ SCH (21:24)
--- NOTE | 2025-06-07 06:28 | Electrocardiogram Report ---
Test Reason : Blood Pressure : */* mmHG Vent. Rate : 58 BPM Atrial Rate : 58 BPM P-R Int : 210 ms QRS Dur : 102 ms QT Int : 422 ms P-R-T Axes : 63 52 62 degrees QTcB Int : 414 ms Sinus bradycardia with 1st degree A-V block Septal infarct (cited on or before 11-Sep-2023) Abnormal ECG When compared with ECG of 11-Sep-2023 09:24, No significant change was found Confirmed by Giovanni Robbins ([id number]) on 06/07/2025 6:28:02 AM Referred By: REFERRED SELF Confirmed By: Giovanni Robbins
[2025-06-07 08:00] LABS: Cholesterol 212.0 mg/dl (0-200); HDL Cholesterol 36.0 mg/dl; Triglycerides 118.0 mg/dl (0-150)
--- NOTE | 2025-06-07 11:02 | Hospitalist Progress Note ---
Date of Service June 07, 2025 Assessment & Plan (1) BPPV (benign paroxysmal positional vertigo): Plan: Michel is an 89yo gentleman with no significant PMH who presented to ED and admitted to hospital on 06/06 for vertigo and is being managed for BPPV. - Brain MRI: No acute intracranial abnormality. - CT Head: 1. No acute findings. 2. No significant arterial narrowing or occlusion seen at the brain. - CT Neck: 1. No stenoses within the bilateral common carotid, cervical internal carotid or cervical vertebral arteries. 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 2. No vertebral artery dissection.3. 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 A short segment dissection is considered less likely. - ECG: Sinus bradycardia with 1st degree A-V block. 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 Abnormal ECG. When compared with ECG of 11-Sep-2023 09:24,No significant change was found - Meclizine 25mg PO TID - PT/OT on board - Plan to d/c depending on PT/OT eval. Tomorrow at earliest. 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 A short segment dissection is considered less likely. -incidental finding -pt asx -started on aspirin PO 81mg daily -conservative management for now -consider reimaging in 6 months for comparison and f/u outpatient Plan Dispo: med [facility] VTE Prophylaxis: heparin SQ Diet: Heart healthy Code Status: Full Admission and Anticipated Discharge Date Admission Date: June 06, 2025 Supervising Physician Co-Signing Physician Notes I personally examined the patient and verified all rincon points of history and exam, discussed case, and agree with decision making with Dr Pa feeling about the same - ok at rest but unsteady/dizzy when standing/walking. NOT lightheaded - more that he's moving or the world is moving. imaging discussed. vitals noted nad heent nc at mmm breathing unlabored no accessory muscles good effort peripheral vertigo - PT eval and treat, trial scheduled meclizine, time, home once able to walk safely ICA aneurysm - incidental, asymptomatic. asa and outpt f/u for now. DVT proph - heparin SQ Subjective Michel is an 89yo gentleman with no significant PMH who presented to ED and admitted to hospital on 06/06 for BPPV. No overnight events. Today the pt reports he feels about the same since yesterday. Only had one dose of meclizine without relief. He reports dizziness when standing and ambulating which requires support, relief when laying down. Pt reports his appetite is better and has been eating but states he has been drinking very little. He has a prior hx of a fall outside several weeks ago when he tripped on a branch on the ground that he did not see, which required 16 stitches to the palm of his right hand. He normally ambulates at home without a cane or walker. Denies fever, chills, SOB, CP, palpitations, abdominal pain, diarrhea, constipation, mood changes. Review of Systems Review of Systems: otherwise neg Physical Exam Physical Exam: GA: well groomed, well nourished male in no apparent distress. AAOx3 HEENT: head normocephalic, atraumatic. EOMI. No conjunctival pallor. Dry mucous membranes. RESP: vesicular breath sounds b/l. No wheezes, rhonchi, or rales CARDIOVASCULAR: S1 and S2 heard. No murmurs, rubs, or gallops. Radial pulses 2+ b/l. Cap refill <2sec GI: Normoactive bowel sounds, no tenderness or masses felt to palpation, normal percussion MSK: no gross abnormalities or focal deficits SKIN: warm, dry, normal skin turgor PSYCH: appropriate mood and affect NEURO: no focal deficits. CN 2-12 intact. Results & Data Results & Data Vital Signs (Past 12 Hours) Vital Signs Temp Pulse Resp BP Pulse Ox O2 Del Method 06/07/25 07:20 36.5 C 62 16 146/84 H 97 Room Air 06/07/25 06:31 156/82 H 06/06/25 23:00 36.7 C 67 18 92/51 L 96 Room Air Resident Activity Tracking Resident Involvement: Resident Care Provided Care Provided: Adult Hospital Medicine (1) BPPV (benign paroxysmal positional vertigo) Laterality: unspecified laterality Qualified Code(s): H81.10 - Benign paroxysmal vertigo, unspecified ear
--- NOTE | 2025-06-07 12:13 | Billing Data ---
Date of Service June 07, 2025 Coding Level of Care Code 05977 SUB INP/OBS CARE
[2025-06-07] MEDS: MECLIZINE HCL 25 MG TAB PO SCH (15:26)
[2025-06-08 06:14] LABS: Hematocrit (blood only) 40.9 % (42.0-52.0); Hemoglobin 13.2 g/dl (14.0-18.0); Mean Corpuscular Hemoglobin 29.5 pg (25.0-34.0); Mean Corpuscular Volume 91.5 fL (80.0-100.0); Platelet Count 309 K/uL (130-400); RDW Standard Deviation 42.2 fL (36.4-46.3); Red Blood Count 4.47 M/uL (4.70-6.10); White Blood Count 6.89 K/ul (4.8-10.8)
[2025-06-08] MEDS: ASPIRIN 81 MG ECTAB PO SCH (10:03)
--- NOTE | 2025-06-08 11:39 | Hospitalist Progress Note ---
Date of Service June 08, 2025 Assessment & Plan (1) BPPV (benign paroxysmal positional vertigo): Plan: Michel is an 89yo gentleman with no significant PMH who presented to ED and admitted to hospital on 06/06 for vertigo and is being managed for BPPV. 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 - CT Head: 1. No acute findings. 2. No significant arterial narrowing or occlusion seen at the brain. - CT Neck: 1. No stenoses within the bilateral common carotid, cervical internal carotid or cervical vertebral arteries. 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 2. No vertebral artery dissection.3. 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 A short segment dissection is considered less likely. - ECG: Sinus bradycardia with 1st degree A-V block. 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 Abnormal ECG. 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 A short segment dissection is considered less likely. -incidental finding -pt asx -aspirin PO 81mg daily -conservative management for now -consider reimaging in 6 months for comparison and outpatient management Plan Dispo: med floors VTE Prophylaxis: heparin SQ Diet: Heart healthy Code Status: Full Admission and Anticipated Discharge Date Admission Date: June 06, 2025 Supervising Physician Co-Signing Physician Notes I personally examined the patient and verified all rincon points of history and exam, discussed case, and agree with decision making with Dr Pa feeling about the same - ok at rest but unsteady/dizzy when standing/walking. seen at same time as PT - does have some degree of chronic balance issues as PT gets hx. 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 vision still good, cerebellum coordinating still good, but since prioprioception likely chronically impaired his margin to compensate when inner ear "goes down" would be nil) -chronic proprioceptive deficit - ongoing PT for balance training - right now would need inpatient rehab, if inner ear lets up quickly, potentially could go home and do rehab as outpt, but right now would need inpatient; as outpatient it would be reasonable to also give a trial of decompression (focused traction) therapy as sometimes it can be helpful -peripheral vertigo -vestibular therapy, trial scheduled meclizine, time ICA aneurysm - incidental, asymptomatic. asa and outpt f/u for now. DVT proph - heparin SQ Subjective No overnight events. Pt seen and examined at bedside this morning. He stated he feels about the same and is symptomatic when ambulating. Has been working with PT. At bedside, he was not symptomatic and denied fever, chills, nausea, vomiting, headaches, visual disturbances, CP, palpitations, SOB, abdominal pain, or mood changes. ROS otherwise neg. Physical Exam Physical Exam: GA: well groomed, well nourished male in no apparent distress. AAOx3 HEENT: head normocephalic, atraumatic. EOMI. No nystagmus RESP: vesicular breath sounds b/l. No wheezes, rhonchi, or rales CARDIOVASCULAR: S1 and S2 heard. No murmurs, rubs, or gallops. Radial pulses 2+ b/l. Cap refill <2sec GI: Normoactive bowel sounds, no tenderness or masses felt to palpation MSK: no gross abnormalities or focal deficits SKIN: warm, dry, no edema PSYCH: appropriate mood and affect NEURO: no focal deficits, no facial droop, speech intact Results & Data Results & Data Vital Signs (Past 12 Hours) Vital Signs Temp Pulse Resp BP Pulse Ox O2 Del Method 06/08/25 07:20 36.6 C 82 16 129/76 98 Room Air Resident Activity Tracking Resident Involvement: Resident Care Provided Care Provided: Adult Hospital Medicine (1) BPPV (benign paroxysmal positional vertigo) Laterality: unspecified laterality Qualified Code(s): H81.10 - Benign paroxysmal vertigo, unspecified ear
--- NOTE | 2025-06-08 14:12 | Billing Data ---
Date of Service June 08, 2025 Coding Level of Care Code 40089 SUB INP/OBS CARE
--- NOTE | 2025-06-09 07:30 | Hospitalist Progress Note ---
Date of Service June 09, 2025 Assessment & Plan (1) BPPV (benign paroxysmal positional vertigo): Plan: Pt presented to ED and admitted to hospital on 06/06 for vertigo and is being managed for BPPV. 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 - CT Head: 1. No acute findings. 2. No significant arterial narrowing or occlusion seen at the brain. - CT Neck: 1. No stenoses within the bilateral common carotid, cervical internal carotid or cervical vertebral arteries. 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 2. No vertebral artery dissection.3. 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 A short segment dissection is considered less likely. ECG - ECG: Sinus bradycardia with 1st degree A-V block. 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 Abnormal ECG. 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 A short segment dissection is considered less likely. -incidental finding -pt asx -aspirin PO 81mg daily -conservative management for now -consider reimaging in 6 months for comparison and outpatient management Plan Diispo: med floors VTE Prophylaxis: heparin SQ Diet: Heart healthy Code Status: Full Admission and Anticipated Discharge Date Admission Date: June 06, 2025 Supervising Physician Co-Signing Physician Notes I personally examined the patient and verified rincon points of history and exam, discussed case, and agree with decision making and plan documented by Dr. Gonzales. Per patient, he reports progressive worsening of chronic balance issues for over a year causing ambulatory dysfunction and falls with worsening sensation of room spinning 06/06/2025 leading to this admission. Incidental 6 mm saccular aneurysm of cervical right ICA require monitoring, patient started on ASA. Physical therapy recommending inpatient rehab, referral placed to [facility]. Subjective At bedside, Saturday 06/09, pt's disposition is pleasant. No significant overnight events, with mild dizziness for a couple of minutes while laying on his left side. Pt is without symptoms, with absent fever, chills, nausea, vomiting. No Headaches, Visual Disturbances, Dizziness, or Chest Pain on exam. No pain on palpation of abdomen with light and heavy touch. Mood is stable Pt still needs assistance ambulating to the restroom, as he feels lack of stability on walking. Negative symptoms on urination and stool. Review of Systems Review of Systems: All systems reviewed & are unremarkable except as noted in HPI & below As per HPI Physical Exam Physical Exam: General physical exam, within normal range. While laying in bed no symptoms of dizziness. On ambulation, support still needed to balance to prevent dizziness Constitutional: WD/WN, vitals as above Eyes: PERRL, conjunctivae normal, anicteric sclerae ENMT: external ear and nose normal, oropharynx normal Neck: trachea midline, no thyromegaly Respiratory: normal respiratory effort, lungs clear to auscultation Cardiovascular: RRR, no murmur, no edema Chest (Breasts): normal inspection/palpation of breasts Gastrointestinal (Abdomen): normal bowel sounds, soft, nontender, no hepatosplenomegaly Musculoskeletal: no cyanosis or clubbing, extremities motor strength 5/5 Skin: no rashes, warm and dry Neurologic: patellar DTR's 2+ bilat, sensation intact Psychiatric: A+Ox3, euthymic affect Orientation: alert Apperance: appropriately dressed Eye Contact: good eye contact Thought Process: goal directed thought process Suicidal Thoughts: denies suicidal thoughts Genitourinary: No abnormalities identified Lymphatic: no cervical or axillary lymphadenopathy Results & Data Results & Data Vital Signs (Past 12 Hours) Vital Signs Temp Pulse Resp BP Pulse Ox O2 Del Method 06/09/25 07:21 36.6 C 52 L 18 137/79 97 Room Air 06/08/25 23:00 36.4 C L 58 L 18 121/72 94 Room Air Resident Activity Tracking Resident Involvement: Resident Care Provided Care Provided: Adult Hospital Medicine (1) BPPV (benign paroxysmal positional vertigo) Laterality: unspecified laterality Qualified Code(s): H81.10 - Benign paroxysmal vertigo, unspecified ear
--- NOTE | 2025-06-10 07:36 | Hospitalist Progress Note ---
Date of Service June 10, 2025 Assessment & Plan (1) BPPV (benign paroxysmal positional vertigo): Plan: Pt presented to ED and admitted to hospital on 06/06 for vertigo and is being managed for BPPV. 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 - CT Head: 1. No acute findings. 2. No significant arterial narrowing or occlusion seen at the brain. - CT Neck: 1. No stenoses within the bilateral common carotid, cervical internal carotid or cervical vertebral arteries. 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 2. No vertebral artery dissection.3. 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 A short segment dissection is considered less likely. ECG - ECG: Sinus bradycardia with 1st degree A-V block. 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 Abnormal ECG. 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 A short segment dissection is considered less likely. -incidental finding -pt asx -aspirin PO 81mg daily -conservative management for now -consider reimaging in 6 months for comparison and outpatient management Plan [facility]: [facility] Prophylaxis: heparin SQ Diet: Heart healthy Code Status: Full Admission and Anticipated Discharge Date Admission Date: June 09, 2025 Supervising Physician Co-Signing Physician Notes I personally examined the patient and verified rincon points of history and exam, discussed case, and agree with decision making and plan documented by Dr. Gonzales. Referral to [facility] accepted, insurance auth pending. Subjective At bedside today, Monday, 06/10, pt's disposition is pleasant again. No significant overnight events. No dizziness in the supine position or while sitting up. Absent fever, chills, nausea, vomiting. No Headaches, Visual Disturbances, Dizziness, or Chest Pain on exam. No pain on palpation of abdomen with light and heavy touch. Mood is stable. Negative symptoms on urination and stoool. Pt's main symptoms arise on ambulation. He still needs assistance getting out of bed. He uses the walker with assistance to go to the restroom, as he feels dizziness and a lack of stability on walking. Review of Systems Review of Systems: All systems reviewed & are unremarkable except as noted in HPI & below Physical Exam Constitutional: WD/WN, vitals as above Eyes: PERRL, conjunctivae normal, anicteric sclerae ENMT: external ear and nose normal, oropharynx normal Neck: trachea midline, no thyromegaly Respiratory: normal respiratory effort, lungs clear to auscultation Cardiovascular: RRR, no murmur, no edema Gastrointestinal (Abdomen): normal bowel sounds, soft, nontender, no hepatosplenomegaly Musculoskeletal: no cyanosis or clubbing, extremities motor strength 5/5 Skin: no rashes, warm and dry Psychiatric: A+Ox3, euthymic affect Lymphatic: no cervical or axillary lymphadenopathy Results & Data Results & Data Vital Signs (Past 12 Hours) Vital Signs Temp Pulse Resp BP Pulse Ox O2 Del Method 06/10/25 07:28 36.5 C 62 16 149/75 H 98 Room Air 06/09/25 21:45 36.5 C 67 16 118/75 98 Room Air Resident Activity Tracking Resident Involvement: Resident Care Provided Care Provided: Adult Hospital Medicine (1) BPPV (benign paroxysmal positional vertigo) Laterality: unspecified laterality Qualified Code(s): H81.10 - Benign paroxysmal vertigo, unspecified ear
--- NOTE | 2025-06-11 07:08 | Hospitalist Progress Note ---
Date of Service June 11, 2025 Assessment & Plan (1) BPPV (benign paroxysmal positional vertigo): Plan: Pt presented to ED and admitted to hospital on 06/06 for vertigo and is being managed for BPPV. 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 - CT Head: 1. No acute findings. 2. No significant arterial narrowing or occlusion seen at the brain. - CT Neck: 1. No stenoses within the bilateral common carotid, cervical internal carotid or cervical vertebral arteries. 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 2. No vertebral artery dissection.3. 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 A short segment dissection is considered less likely. ECG - ECG: Sinus bradycardia with 1st degree A-V block. 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 Abnormal ECG. 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 A short segment dissection is considered less likely. -incidental finding -pt asx -aspirin PO 81mg daily -conservative management for now -consider reimaging in 6 months for comparison and outpatient management Plan [facility]: [facility] Prophylaxis: heparin SQ Diet: Heart healthy Code Status: Full Admission and Anticipated Discharge Date Admission Date: June 09, 2025 Supervising Physician Co-Signing Physician Notes I personally examined the patient and verified rincon points of history and exam, discussed case, and agree with decision making and plan documented by Dr. Gonzales. Referral to [facility] accepted, insurance auth pending. Subjective At bedside today, Monday, 06/11, pt's disposition is stable, and he is pleasant usual No significant overnight events. No dizziness in the supine position or while sitting up. Absent fever, chills, nausea, vomiting. No Headaches, Visual Disturbances, Dizziness, or Chest Pain on exam. No pain on palpation of abdomen with light and heavy touch. Mood is stable. Negative symptoms on urination and stool. Pt's main symptoms arise on ambulation. He still needs assistance getting out of bed. He uses the walker with assistance to go to the restroom, as he feels dizziness and a lack of stability on walking. Review of Systems Review of Systems: All systems reviewed & are unremarkable except as noted in HPI & below As per HPI Physical Exam Physical Exam: General physical exam, within normal range. While laying in bed no symptoms of dizziness. On ambulation, support still needed to balance to prevent dizziness Constitutional: WD/WN, vitals as above Eyes: PERRL, conjunctivae normal, anicteric sclerae ENMT: external ear and nose normal, oropharynx normal Neck: trachea midline, no thyromegaly Respiratory: normal respiratory effort, lungs clear to auscultation Cardiovascular: RRR, no murmur, no edema Chest (Breasts): normal inspection/palpation of breasts Gastrointestinal (Abdomen): normal bowel sounds, soft, nontender, no hepatosplenomegaly Musculoskeletal: no cyanosis or clubbing, extremities motor strength 5/5 Skin: no rashes, warm and dry Neurologic: patellar DTR's 2+ bilat, sensation intact Psychiatric: A+Ox3, euthymic affect Orientation: alert Apperance: appropriately dressed Eye Contact: good eye contact Thought Process: goal directed thought process Suicidal Thoughts: denies suicidal thoughts Lymphatic: no cervical or axillary lymphadenopathy Results & Data Results & Data Vital Signs (Past 12 Hours) Vital Signs Temp Pulse Resp BP Pulse Ox O2 Del Method 06/10/25 23:21 36.3 C L 61 18 116/72 97 Room Air Resident Supervision Co-Signing Physician Notes I personally examined the patient and verified rincon points of history and exam, discussed case, and agree with decision making and plan documented by Dr. Gonzales. Patient continues to feel off balance and unsteady with ambulation. Encouraged use of walker. Referral to [facility] accepted, insurance auth pending. Resident Activity Tracking Resident Involvement: Resident Care Provided Care Provided: Adult Hospital Medicine (1) BPPV (benign paroxysmal positional vertigo) Laterality: unspecified laterality Qualified Code(s): H81.10 - Benign paroxysmal vertigo, unspecified ear
--- NOTE | 2025-06-12 09:14 | Hospitalist Progress Note ---
Date of Service June 12, 2025 Assessment & Plan (1) BPPV (benign paroxysmal positional vertigo): Plan: Pt presented to ED and admitted to hospital on 06/06 for vertigo and is being managed for BPPV. 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 - CT Head: 1. No acute findings. 2. No significant arterial narrowing or occlusion seen at the brain. - CT Neck: 1. No stenoses within the bilateral common carotid, cervical internal carotid or cervical vertebral arteries. 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 2. No vertebral artery dissection.3. 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 A short segment dissection is considered less likely. ECG - ECG: Sinus bradycardia with 1st degree A-V block. 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 Abnormal ECG. When compared with ECG of 11-Sep-2023 09:24,No significant change was found Medication - Meclizine 25mg PO TID - PT/OT daily in Pt -Pt admitted from observation status this prior weekend -Case management, identified [facility] could take pt towards end of the week, but still waiting on insurance to see if it will be covered -Pt's dizziness appears to be multifactorial, which either resolved through Meclizine, or through reestablishment of the vestibular system. At this time we believe continued development of the quadriceps muscles with PT/OT will continue to improve the stability of this pt. 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 A short segment dissection is considered less likely. -incidental finding -pt asx -aspirin PO 81mg daily -conservative management for now -consider reimaging in 6 months for comparison and outpatient management Plan [facility]: [facility] Prophylaxis: heparin SQ Diet: Heart healthy Code Status: Full Admission and Anticipated Discharge Date Admission Date: June 09, 2025 Supervising Physician Co-Signing Physician Notes I personally examined the patient and verified rincon points of history and exam, discussed case, and agree with decision making and plan documented by Dr. Gonzales. Patient reports with symptoms of dizziness and imbalance when ambulating with walker. PT recommending rehab. Referral to [facility] accepted, insurance auth pending. Subjective At bedside today,pt's disposition is stable, and he is pleasant usual No significant overnight events. No dizziness in the supine position or while sitting up. Absent fever, chills, nausea, vomiting. No Headaches, Visual Disturbances, Dizziness, or Chest Pain on exam. No pain on palpation of abdomen with light and heavy touch. Mood is stable. Negative symptoms on urination and stool. Again today, Pt's main symptoms arise on walking with walker. The dizziness has appeared to subside, however the stability in his legs is not present, as he can only spend a few moments away from his walker without feeling unstable. Review of Systems Review of Systems: All systems reviewed & are unremarkable except as noted in HPI & below As per HPI Physical Exam Physical Exam: General physical exam, within normal range. While laying in bed no symptoms of dizziness. On ambulation, support still needed to balance to prevent dizziness Constitutional: WD/WN, vitals as above Eyes: PERRL, conjunctivae normal, anicteric sclerae ENMT: external ear and nose normal, oropharynx normal Neck: trachea midline, no thyromegaly Respiratory: normal respiratory effort, lungs clear to auscultation Cardiovascular: RRR, no murmur, no edema Chest (Breasts): normal inspection/palpation of breasts Gastrointestinal (Abdomen): normal bowel sounds, soft, nontender, no hepatosplenomegaly Musculoskeletal: no cyanosis or clubbing, extremities motor strength 5/5 Skin: no rashes, warm and dry Neurologic: patellar DTR's 2+ bilat, sensation intact Psychiatric: A+Ox3, euthymic affect Orientation: alert Apperance: appropriately dressed Eye Contact: good eye contact Thought Process: goal directed thought process Suicidal Thoughts: denies suicidal thoughts Genitourinary: no testicular masses, no penis abnormality Lymphatic: no cervical or axillary lymphadenopathy Results & Data Results & Data Vital Signs (Past 12 Hours) Vital Signs Temp Pulse Resp BP Pulse Ox O2 Del Method 06/12/25 08:20 36.5 C 67 18 132/81 95 Room Air 06/11/25 23:03 36.5 C 65 16 108/70 95 Room Air Resident Activity Tracking Resident Involvement: Resident Care Provided Care Provided: Adult Hospital Medicine (1) BPPV (benign paroxysmal positional vertigo) Laterality: unspecified laterality Qualified Code(s): H81.10 - Benign paroxysmal vertigo, unspecified ear
--- NOTE | 2025-06-13 06:56 | Hospitalist Progress Note ---
Date of Service June 13, 2025 Assessment & Plan (1) BPPV (benign paroxysmal positional vertigo): (2) Saccular aneurysm: Plan Pt is an 89 yo male,PMH hypertension, presenting with dizziness on 06/06. # BBP (Benign Paroxysmal Positional Vertigo) - Patient presented with vertigo - Brain MRI. 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 A short segment dissection is considered less likely. - ECG: Sinus bradycardia with 1st degree A-V block. i. Continue Meclizine 25mg PO TID ii. Continue PT/OT daily in Pt iii. 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 A short segment dissection is considered less likely. Plan i. aspirin PO 81mg daily ii. conservative management for now iii. Follow up in outpt setting iii. consider reimaging in 6 months for comparison [facility] Prophylaxis: heparin SQ Diet: Heart healthy Code Status: Full Admission and Anticipated Discharge Date Admission Date: June 09, 2025 Supervising Physician Co-Signing Physician Notes Attending attestation Pt seen and examined in concert with Dr. Gonzales. In agreement with the documented findings as noted in the resident documentation with any exceptions or additions as noted here. Resting comfortably in bed with persistent mild dizziness, engaged with rehab process. VS as noted. On examination, S1/S2 nl RRR no MCG. CTAB. Abd NT/ND BS+ve BPPV with ambulatory dysfunction, acute on chronic - PT/OT consult appreciated - P2P today for SNF for ongoing support. CBC, CMP today WNL. Reviewed w/ family imaging, lab studies and likely prognosis for ongoing care and rehab. Else see resident documentation as noted. Subjective At bedside, pt's disposition is stable, and he is pleasant usual No significant overnight events. No dizziness in the supine position or while sitting up. Absent fever, chills, nausea, vomiting. No Headaches, Visual Disturbances, Dizziness, or Chest Pain on exam. No pain on palpation of abdomen with light and heavy touch. Mood is stable. Negative symptoms on urination and stool. Review of Systems Review of Systems: All systems reviewed & are unremarkable except as noted in HPI & below Physical Exam Physical Exam: General physical exam, within normal range. While laying in bed no symptoms of dizziness. On ambulation, support still needed to balance to prevent dizziness Constitutional: WD/WN, vitals as above Eyes: PERRL, conjunctivae normal, anicteric sclerae ENMT: external ear and nose normal, oropharynx normal Neck: trachea midline, no thyromegaly Respiratory: normal respiratory effort, lungs clear to auscultation Cardiovascular: RRR, no murmur, no edema Chest (Breasts): normal inspection/palpation of breasts Gastrointestinal (Abdomen): normal bowel sounds, soft, nontender, no hepatosplenomegaly Musculoskeletal: no cyanosis or clubbing, extremities motor strength 5/5 Skin: no rashes, warm and dry Neurologic: patellar DTR's 2+ bilat, sensation intact Psychiatric: A+Ox3, euthymic affect Orientation: alert Apperance: appropriately dressed Eye Contact: good eye contact Thought Process: goal directed thought process Suicidal Thoughts: denies suicidal thoughts Genitourinary: no testicular masses, no penis abnormality Lymphatic: no cervical or axillary lymphadenopathy Results & Data Results & Data Vital Signs (Past 12 Hours) Vital Signs Temp Pulse Resp BP Pulse Ox O2 Del Method 06/12/25 23:17 36.7 C 63 18 105/69 96 Room Air Resident Activity Tracking Resident Involvement: Resident Care Provided Care Provided: Adult Hospital Medicine (1) BPPV (benign paroxysmal positional vertigo) Laterality: unspecified laterality Qualified Code(s): H81.10 - Benign paroxysmal vertigo, unspecified ear
[2025-06-13 07:36] LABS: Hematocrit (blood only) 41.0 % (42.0-52.0); Hemoglobin 13.7 g/dl (14.0-18.0); Immature Granulocytes # (auto) 0.04 K/uL (0.01-0.20); Immature Granulocytes % (auto) 0.5 %; Mean Corpuscular Hemoglobin 30.0 pg (25.0-34.0); Mean Corpuscular Volume 89.7 fL (80.0-100.0); Platelet Count 325 K/uL (130-400); RDW Standard Deviation 41.9 fL (36.4-46.3); Red Blood Count 4.57 M/uL (4.70-6.10); White Blood Count 7.35 K/ul (4.8-10.8)
[2025-06-13 07:59] LABS: Anion Gap 5.0 (3-11); Blood Urea Nitrogen 28.0 mg/dl (6-23); Calcium 9.2 mg/dl (8.6-10.3); Carbon Dioxide 27.0 mmol/L (21-32); Chloride 106.0 mmol/L (98-107); Creatinine Clr Calc Pharmacy 41.9 ml/min; Glucose 90.0 mg/dl (70-99(Fasting)); Potassium 4.3 mmol/L (3.5-5.1); Sodium 138.0 mmol/L (136-145)
--- NOTE | 2025-06-14 09:23 | Hospitalist Progress Note ---
Date of Service June 14, 2025 Assessment & Plan (1) BPPV (benign paroxysmal positional vertigo): (2) Saccular aneurysm: Plan Pt is an 89 yo male, PMH hypertension, presenting with dizziness on 06/06. # BBP (Benign Paroxysmal Positional Vertigo) - Patient presented with vertigo - Brain MRI. 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 A short segment dissection is considered less likely. - ECG: Sinus bradycardia with 1st degree A-V block. Plan i. Continue Meclizine 25mg PO TID ii. Continue PT/OT daily in Pt iii. 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 A short segment dissection is considered less likely. Plan i. aspirin PO 81mg daily ii. conservative management for now iii. Follow up in outpt setting iii. consider reimaging in 6 months for comparison [facility] Prophylaxis: heparin SQ Diet: Heart healthy Code Status: Full Admission and Anticipated Discharge Date Admission Date: June 09, 2025 Supervising Physician Co-Signing Physician Notes Attending attestation Pt seen and examined in concert with Dr. Gonzales. In agreement with the documented findings as noted in the resident documentation with any exceptions or additions as noted here. Resting comfortably in bed with intermittent mild dizziness which is triggered by looking back and behind him. Engaged with rehab process. VS as noted. On examination, S1/S2 nl RRR no MCG. CTAB. Abd NT/ND BS+ve BPPV with ambulatory dysfunction, acute on chronic - PT/OT consult appreciated - Pending placement at SNF on Monday. Encourage positional and activity modification to avoid triggering BPPV symptoms to minimize complaint. Continue PRN medication. Else see resident documentation as noted. Subjective At bedside, pt's disposition is stable, and he is pleasant as usual No significant overnight events. No dizziness in the supine position or while sitting up. Absent fever, chills, nausea, vomiting. No Headaches, Visual Disturbances, Dizziness, or Chest Pain on exam. No pain on palpation of abdomen with light and heavy touch. Mood is stable. Negative symptoms on urination and stool. Review of Systems Review of Systems: All systems reviewed & are unremarkable except as noted in HPI & below Physical Exam Physical Exam: General physical exam, within normal range. While laying in bed no symptoms of dizziness. On ambulation, support still needed to balance to prevent dizziness Constitutional: WD/WN, vitals as above Eyes: PERRL, conjunctivae normal, anicteric sclerae ENMT: external ear and nose normal, oropharynx normal Neck: trachea midline, no thyromegaly Respiratory: normal respiratory effort, lungs clear to auscultation Cardiovascular: RRR, no murmur, no edema Chest (Breasts): normal inspection/palpation of breasts Gastrointestinal (Abdomen): normal bowel sounds, soft, nontender, no hepatosplenomegaly Musculoskeletal: no cyanosis or clubbing, extremities motor strength 5/5 Skin: no rashes, warm and dry Neurologic: patellar DTR's 2+ bilat, sensation intact Psychiatric: A+Ox3, euthymic affect Orientation: alert Apperance: appropriately dressed Eye Contact: good eye contact Thought Process: goal directed thought process Suicidal Thoughts: denies suicidal thoughts Genitourinary: no testicular masses, no penis abnormality Lymphatic: no cervical or axillary lymphadenopathy Results & Data Results & Data Vital Signs (Past 12 Hours) Vital Signs Temp Pulse Resp BP Pulse Ox O2 Del Method 06/14/25 07:52 36.5 C 63 18 136/84 95 Room Air Resident Activity Tracking Resident Involvement: Resident Care Provided Care Provided: Adult Hospital Medicine (1) BPPV (benign paroxysmal positional vertigo) Laterality: unspecified laterality Qualified Code(s): H81.10 - Benign paroxysmal vertigo, unspecified ear
--- NOTE | 2025-06-15 09:22 | Hospitalist Progress Note ---
Date of Service June 15, 2025 Assessment & Plan (1) BPPV (benign paroxysmal positional vertigo): (2) Saccular aneurysm: Plan Pt is an 89 yo male, PMH hypertension, presenting with dizziness on 06/06. # BBP (Benign Paroxysmal Positional Vertigo) - Patient presented with vertigo - Brain MRI. 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 A short segment dissection is considered less likely. - ECG: Sinus bradycardia with 1st degree A-V block. Plan i. Continue Meclizine 25mg PO TID ii. Continue PT/OT daily in Pt iii. 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 A short segment dissection is considered less likely. Plan i. aspirin PO 81mg daily ii. conservative management for now iii. Follow up in outpt setting iii. consider reimaging in 6 months for comparison [facility] Prophylaxis: heparin SQ Diet: Heart healthy Code Status: Full Admission and Anticipated Discharge Date Admission Date: June 09, 2025 Supervising Physician Co-Signing Physician Notes Attending attestation Pt seen and examined in concert with Dr. Gonzales. In agreement with the documented findings as noted in the resident documentation with any exceptions or additions as noted here. Resting comfortably in bed with intermittent mild dizziness which is triggered by looking back and behind him. Engaged with rehab process. VS as noted. On examination, S1/S2 nl RRR no MCG. CTAB. Abd NT/ND BS+ve BPPV with ambulatory dysfunction, acute on chronic - PT/OT consult appreciated - Pending placement at SNF on Monday. Encourage positional and activity modification to avoid triggering BPPV symptoms to minimize complaint. Continue PRN medication. Else see resident documentation as noted. Subjective At bedside, pt's disposition is stable, and he is pleasant as usual. No significant overnight events. No dizziness in the supine position or while sitting up. Absent fever, chills, nausea, vomiting. No Headaches, Visual disturbances, Dizziness, or Chest Pain on exam. No pain on palpation of abdomen with light and heavy touch. Mood is stable. Negative symptoms on urination and stool. Review of Systems Review of Systems: All systems reviewed & are unremarkable except as noted in HPI & below Physical Exam Physical Exam: General physical exam, within normal range. While laying in bed no symptoms of dizziness. On ambulation, support still needed to balance to prevent dizziness Constitutional: WD/WN, vitals as above Eyes: PERRL, conjunctivae normal, anicteric sclerae ENMT: external ear and nose normal, oropharynx normal Neck: trachea midline, no thyromegaly Respiratory: normal respiratory effort, lungs clear to auscultation Cardiovascular: RRR, no murmur, no edema Chest (Breasts): normal inspection/palpation of breasts Gastrointestinal (Abdomen): normal bowel sounds, soft, nontender, no hepatosplenomegaly Musculoskeletal: no cyanosis or clubbing, extremities motor strength 5/5 Skin: no rashes, warm and dry Psychiatric: A+Ox3, euthymic affect Orientation: alert Apperance: appropriately dressed Eye Contact: good eye contact Thought Process: goal directed thought process Suicidal Thoughts: denies suicidal thoughts Genitourinary: no testicular masses, no penis abnormality Lymphatic: no cervical or axillary lymphadenopathy Results & Data Results & Data Vital Signs (Past 12 Hours) Vital Signs Temp Pulse Resp BP Pulse Ox O2 Del Method 06/15/25 09:03 36.5 C 65 18 147/89 H 96 Room Air 06/14/25 23:04 36.8 C 64 16 121/75 96 Room Air Resident Activity Tracking Resident Involvement: Resident Care Provided Care Provided: Adult Hospital Medicine (1) BPPV (benign paroxysmal positional vertigo) Laterality: unspecified laterality Qualified Code(s): H81.10 - Benign paroxysmal vertigo, unspecified ear
--- NOTE | 2025-06-16 09:12 | Discharge Summary ---
Date of Service June 16, 2025 Admission HPI Per Admitting Provider Pt is an 89 yo male, arriving to the ED, on 06/06, with PMH hypertension, presenting with dizziness and leg weakness. Pt stated he woke up in bed and turned from my left side to his right side - and all of a sudden, the room was spinning [id number] very fast. At which point, he closed his eyes and the spinning stopped. Upon opening the eyes, the spinning started up again. The spinning lasted for 1 minute. Then it went away. Over the course of his stay, pt has improved his balance and proprioception with the aid of a walker. At this time My vision was fine with my glasses on. I did not have any blurry vision. I was not seeing double in [facility] ER or at home this morning (06/06/2025, 6:00am) when the room was spinning very fast. My speech was fine and I could talk normally to my , no problem there. I am right-handed, and my right hand is swollen still and not as strong since I fell last month (05/08/2025), and had to have 16 stitches in the palm of my right hand done right here in [facility] ER, and I had to twist my fingers back to their normal position after they got bent out of shape--no broken fingers or bones--when I fell down outside my home, but other than that, I can do everything with my right hand like I always have, including eating with a spoon, holding a cup, writing with a pen, putting on my clothes and taking them off, going to the bathroom, getting up from a chair or my bed. I don't use a cane or walker. I can still drive a car. I just want to make sure that I did not have a stroke, that a stroke was causing the room to spin so fast this morning (06/06/2025, 6:00am)." Patient denies antecedent/coincident fevers, chills, diaphoresis, cough, wheeze, sore throat, hemoptysis, chest pains, palpitations, pleurisy, nausea, vomiting, diarrhea, abdominal pain, pelvic pain, hematemesis, hematochezia, melena, hematuria, dysuria, frequency, urgency, visual changes, hearing changes, weakness, falls, syncope, trauma, travel history, sick contacts, or food/drug ingestions novel or new. All other review of systems are reported as negative by the patient on observation date 06/06/2025. In [facility] ER bed #C11B, patient was afebrile @ 36.7 degrees Celsius, HR 59, RR 18, O2 sat 99% on room air, and BP 173/86 (06/06/2025, 9:52am). Exam was negative for nystagmus, gaze paresis, anisocoria, miosis, mydriasis, hyphema, chemosis, scleral injection, conjunctivitis, or pterygium. Sasha-Hallpike / Marty maneuvers did not provoke nystagmus (horizontal, vertical, or rotary), nausea, vomiting, headache, visual changes, etc. Labs in [facility] ER bed #C11B included: WBC 7.48, N71 L18 M9 E1 B1, Hb 13.9, MCV 90.0, MCHC 32.9, platelet 310 (06/06/2025, 9:52am). INR 1.0 (06/06/2025, 9:52am). Na 139, K 3.9, BUN 20, creatinine 1.06, glucose 134, Ca 9.1, Mg 2.1, AST 32, ALT 47, ALK PHOS 54, TBili 1.1 (06/06/2025, 9:52am). HbA1c 6.0% (06/06/2025, 9:52am). TSH 3.410 uIU/mL (06/06/2025, 9:52am). U/A: clear yellow, LE-, nitrite- (06/06/2025, 9:52am). Additional testing in [facility] ER bed #C11B included: CTA head (06/06/2025, 9:43am): 1. No acute findings. 2. No significant arterial narrowing or occlusion seen at the brain. CTA neck (06/06/2025, 9:43am): 1. No stenoses within the bilateral common carotid, cervical internal carotid or cervical vertebral arteries. 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 2. No vertebral artery dissection. 3. 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 A short segment dissection is considered less likely. MRI brain without IV contrast (06/06/2025, 12:38pm): 1. No acute intracranial abnormality. Patient was subsequently placed in OBSERVATION on the hospitalist service @ [facility] on 06/06/2025 with the following diagnosis: 1. Benign paroxysmal positional vertigo (BPPV). To address #1, patient was started on meclizine 25mg PO x 1 dose (06/06/2025, 10:00am) in [facility] ER bed #C11B, and reported no change after receiving this medication. Patient reported that he would wait to see if BPPV recurs before taking another dose of meclizine 25mg as patient does not take any medications at home at all. Discharge Exam General physical exam, within normal range. While laying in bed no symptoms of dizziness. On ambulation, support still needed to balance to prevent dizziness Constitutional WD/WN, vitals as above Eyes PERRL, conjunctivae normal, anicteric sclerae ENMT external ear and nose normal, oropharynx normal Neck trachea midline, no thyromegaly Respiratory normal respiratory effort, lungs clear to auscultation Cardiovascular RRR, no murmur, no edema Chest (Breasts) normal inspection/palpation of breasts Gastrointestinal (Abdomen) normal bowel sounds, soft, nontender, no hepatosplenomegaly Musculoskeletal no cyanosis or clubbing, extremities motor strength 5/5 Skin no rashes, warm and dry Neurologic patellar DTR's 2+ bilat, sensation intact Psychiatric A+Ox3, euthymic affect Orientation: alert Apperance: appropriately dressed Eye Contact: good eye contact Thought Process: goal directed thought process Suicidal Thoughts: denies suicidal thoughts Genitourinary no testicular masses, no penis abnormality Lymphatic no cervical or axillary lymphadenopathy Discharge Data Allergies Allergy/AdvReac Type Severity Reaction Status Date / Time No Known Allergies Allergy Verified 08/01/18 09:37 Consultations 06/06/25 11:32 ED Decision to Admit Stat Ordered Studies 06/06/25 09:43 CT angio head wo/w Stat CTA neck with con [CT angio neck with con] Stat 06/06/25 12:38 MRI Brain [MR brain wo con] Stat Hospital Course (1) BPPV (benign paroxysmal positional vertigo): (2) Saccular aneurysm: Plan Pt is an 89 yo male, PMH hypertension, presenting with dizziness on 06/06, patient found with BPPV and bilateral lower weakness # BBP (Benign Paroxysmal Positional Vertigo) - Patient presented with vertigo - Brain MRI. 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 A short segment dissection is considered less likely. - ECG: Sinus bradycardia with 1st degree A-V block. 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 A short segment dissection is considered less likely - Started on aspirin PO 81mg daily - conservative management for now -Follow up in outpt setting -consider reimaging in 6 months for comparison [facility] Prophylaxis: heparin SQ Diet: Heart healthy Code Status: Full Discharge Plan Discharge Items Patient Disposition: Personal [facility] Reason For Visit: DIZZINESS, VERTIGO Discharge Diagnosis: Dizziness, Vertigo Condition on Discharge: Fair Activity: Per Instructions section Non-emergency contact: Primary Care Provider Call non-emergency contact if: your symptoms worsen and your pain is not controlled Follow-up/Referrals: Tomas Najera [Primary Care Provider] - Diet: Regular Addtl Attending Provider Instructions: Plan Pt is an 89 yo male, PMH hypertension, presenting with dizziness on 8, patient found with BPPV and bilateral lower weakness # BBP (Benign Paroxysmal Positional Vertigo) - Patient presented with vertigo - Brain MRI. 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 A short segment dissection is considered less likely. - ECG: Sinus bradycardia with 1st degree A-V block. 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 A short segment dissection is considered less likely - Started on aspirin PO 81mg daily - conservative management for now -Follow up in outpt setting -consider reimaging in 6 months for comparison [facility] Prophylaxis: heparin SQ Diet: Heart healthy Code Status: Full Pending Studies at Discharge: No Stand-Alone Forms: My BUILD, Smoking Cessation Skilled Items Patient informed of condition?: Yes DNR: No Discharge Level of Care: Acute rehab Communicable Disease: No Discharge Prognosis: Improving Lines: None Urinary Catheter: No Medications and DC Order Prescriptions: New aspirin 81 mg Tablet,Delayed Release (Dr/Ec) 81 mg PO QAM Qty: 30 0RF meclizine 25 mg Tablet 25 mg PO TID Qty: 30 0RF Continued cholecalciferol (vitamin D3) [Vitamin D3] 2,000 unit Capsule 2,000 unit PO QPM Elderberry 1 cap PO DAILY red beet 0 mg PO DAILY Patient Comments: 06/06- OTC unknown dose Admission Data Admit Date/Time: 06/09/25 10:16 Attending Provider: Dano Rosas Admit Provider: Clay Akhtar Primary Care Provider: Tomas Najera Other Providers: Clay Akhtar; Dano Rosas; [facility] Supervising Physician Co-Signing Physician Notes Attending attestation Pt seen and examined in concert with Dr. Gonzales. In agreement with the documented findings as noted in the resident documentation with any exceptions or additions as noted here. Resting comfortably in bed with intermittent mild dizziness which is triggered by looking back and behind him. Engaged with rehab process. VS as noted. On examination, S1/S2 nl RRR no MCG. CTAB. Abd NT/ND BS+ve BPPV with ambulatory dysfunction, acute on chronic - PT/OT consult appreciated - Pending placement at SNF on Monday. Encourage positional and activity modification to avoid triggering BPPV symptoms to minimize complaint. Continue PRN medication. Else see resident documentation as noted.
--- NOTE | 2025-06-16 10:48 | Discharge Summary ---
Date of Service June 16, 2025 Discharge Data Allergies Allergy/AdvReac Type Severity Reaction Status Date / Time No Known Allergies Allergy Verified 08/01/18 09:37 Consultations 06/06/25 11:32 ED Decision to Admit Stat Ordered Studies 06/06/25 09:43 CT angio head wo/w Stat CTA neck with con [CT angio neck with con] Stat 06/06/25 12:38 MRI Brain [MR brain wo con] Stat Hospital Course (1) BPPV (benign paroxysmal positional vertigo): (2) Saccular aneurysm: Discharge Plan Discharge Items Patient Disposition: Personal [facility] Reason For Visit: DIZZINESS, VERTIGO Discharge Diagnosis: Dizziness, Vertigo Condition on Discharge: Fair Activity: Per Instructions section Non-emergency contact: Primary Care Provider Call non-emergency contact if: your symptoms worsen and your pain is not controlled Follow-up/Referrals: Tomas Najera [Primary Care Provider] - Diet: Regular Addtl Attending Provider Instructions: Plan Pt is an 89 yo male, PMH hypertension, presenting with dizziness on 06/06, patient found with BPPV and bilateral lower weakness # BBP (Benign Paroxysmal Positional Vertigo) - Patient presented with vertigo - Brain MRI. 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 A short segment dissection is considered less likely. - ECG: Sinus bradycardia with 1st degree A-V block. 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 A short segment dissection is considered less likely - Started on aspirin PO 81mg daily - conservative management for now -Follow up in outpt setting -consider reimaging in 6 months for comparison [facility] Prophylaxis: heparin SQ Diet: Heart healthy Code Status: Full Pending Studies at Discharge: No Stand-Alone Forms: [employer], Smoking Cessation Skilled Items Patient informed of condition?: Yes DNR: No Discharge Level of Care: Acute rehab Communicable Disease: No Discharge Prognosis: Improving Lines: None Urinary Catheter: No Medications and DC Order Prescriptions: New aspirin 81 mg Tablet,Delayed Release (Dr/Ec) 81 mg PO QAM Qty: 30 0RF meclizine 25 mg Tablet 25 mg PO TID Qty: 30 0RF Continued cholecalciferol (vitamin D3) [Vitamin D3] 2,000 unit Capsule 2,000 unit PO QPM Elderberry 1 cap PO DAILY red beet 0 mg PO DAILY Patient Comments: 06/06- OTC unknown dose Discharge Orders: Discharge Order (Routine); Ordered 06/16/25 Ordered By: Roxane Gonzales Admission Data Admit Date/Time: 06/09/25 10:16 Attending Provider: Dano Rosas Admit Provider: Clay Akhtar Primary Care Provider: Tomas Najera Other Providers: Clay Akhtar; Dano Rosas; [facility]
--- NOTE | 2025-06-16 10:51 | Discharge Summary ---
Date of Service June 16, 2025 Admission HPI Per Admitting Provider 89 years old male with PMH of FULL CODE @ home, overweight with BMI 26.5 (height 170.18 cm; weight 76.8 kg), who takes no medications at home, who reports: "I woke up at 6:00am today (06/06/2025). I was in bed and I turned from my left side to my right side. All of a sudden, the room was spinning [id number] very very fast. I closed my eyes and the spinning stopped. I opened my eyes and the spinning started up again. The spinning lasted for 1 minute. Then it went away. I never felt like that before in my life. I then got up and walked to the hallway. I had to hold the wagner for support; otherwise, I would have fallen down. I did not fall down. I told my that I needed to go to the hospital to get checked out. So, my called the ambulance and the ambulance brought me to [facility] ER. I don't know what caused this fast spinning in the first place. I felt completely well the day before and last night (06/05/2025, 9:00pm) when I went to bed. I didn't eat any food or drink since last night (06/05/2025, 6:00pm). But I don't feel hungry at all. I have not had an appetite for a long time now; my is sick and I worry about her a lot. Maybe that is why I don't feel hungry. I can smell the food and I can taste the food just fine, no problems, and the food smells and tastes great, but it does not make me want to eat. I have only lost 5 pounds in the past year. I don't sweat at night. I only sweat at daytime if I am exerting myself outside and it is hot or warm outside. Maybe I am a little dehydrated. Could that have caused the room to spin this morning? I came to [facility] ER around 9:30am today. I felt that the room spinning was slower in [facility] ER. I did not have any nausea or vomit in [facility] ER. I did not have any nausea or vomit in my home, where the room spinning was very fast. The only thing different after I got to [facility] ER and into this bed (cf., [facility] ER bed #C11B) was that I had this headache all over my head, left and right, front and back of my head, and it lasted about 1 minute. Then it went away. My vision was fine with my glasses on. I did not have any blurry vision. I was not seeing double in [facility] ER or at home this morning (06/06/2025, 6:00am) when the room was spinning very fast. My speech was fine and I could talk normally to my , no problem there. I am right-handed, and my right hand is swollen still and not as strong since I fell last month (05/08/2025), and had to have 16 stitches in the palm of my right hand done right here in [facility] ER, and I had to twist my fingers back to their normal position after they got bent out of shape--no broken fingers or bones--when I fell down outside my home, but other than that, I can do everything with my right hand like I always have, including eating with a spoon, holding a cup, writing with a pen, putting on my clothes and taking them off, going to the bathroom, getting up from a chair or my bed. I don't use a cane or walker. I can still drive a car. I just want to make sure that I did not have a stroke, that a stroke was causing the room to spin so fast this morning (06/06/2025, 6:00am)." Patient denies antecedent/coincident fevers, chills, diaphoresis, cough, wheeze, sore throat, hemoptysis, chest pains, palpitations, pleurisy, nausea, vomiting, diarrhea, abdominal pain, pelvic pain, hematemesis, hematochezia, melena, hematuria, dysuria, frequency, urgency, visual changes, hearing changes, weakness, falls, syncope, trauma, travel history, sick contacts, or food/drug ingestions novel or new. All other review of systems are reported as negative by the patient on observation date 06/06/2025. In [facility] ER bed #C11B, patient was afebrile @ 36.7 degrees Celsius, HR 59, RR 18, O2 sat 99% on room air, and BP 173/86 (06/06/2025, 9:52am). Exam was negative for nystagmus, gaze paresis, anisocoria, miosis, mydriasis, hyphema, chemosis, scleral injection, conjunctivitis, or pterygium. [place]-Hallpike / Marty maneuvers did not provoke nystagmus (horizontal, vertical, or rotary), nausea, vomiting, headache, visual changes, etc. Principal Diagnosis Vertigo Discharge Data Allergies Allergy/AdvReac Type Severity Reaction Status Date / Time No Known Allergies Allergy Verified 08/01/18 09:37 Consultations 06/06/25 11:32 ED Decision to Admit Stat Ordered Studies 06/06/25 09:43 CT angio head wo/w Stat CTA neck with con [CT angio neck with con] Stat 06/06/25 12:38 MRI Brain [MR brain wo con] Stat Hospital Course (1) BPPV (benign paroxysmal positional vertigo): (2) Saccular aneurysm: Plan Plan Pt is an 89 yo male, PMH hypertension, presenting with dizziness on 06/06, patient found with BPPV and bilateral lower weakness # BBP (Benign Paroxysmal Positional Vertigo) - Patient presented with vertigo - Brain MRI. 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 A short segment dissection is considered less likely. - ECG: Sinus bradycardia with 1st degree A-V block. 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 A short segment dissection is considered less likely - Started on aspirin PO 81mg daily - conservative management for now -Follow up in outpt setting -consider reimaging in 6 months for comparison [facility] Prophylaxis: heparin SQ Diet: Heart healthy Code Status: Full Total Time Total Time Spent Total Time Spent (In Minutes): As per attending notes Discharge Plan Discharge Items Patient Disposition: Personal [facility] Reason For Visit: DIZZINESS, VERTIGO Discharge Diagnosis: Dizziness, Vertigo Condition on Discharge: Fair Activity: Per Instructions section Non-emergency contact: Primary Care Provider Call non-emergency contact if: your symptoms worsen and your pain is not controlled Follow-up/Referrals: Tomas Najera [Primary Care Provider] - Diet: Regular Addtl Attending Provider Instructions: Plan Pt is an 89 yo male, PMH hypertension, presenting with dizziness on 06/06, patient found with BPPV and bilateral lower weakness # BBP (Benign Paroxysmal Positional Vertigo) - Patient presented with vertigo - Brain MRI. 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 A short segment dissection is considered less likely. - ECG: Sinus bradycardia with 1st degree A-V block. 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 A short segment dissection is considered less likely - Started on aspirin PO 81mg daily - conservative management for now -Follow up in outpt setting -consider reimaging in 6 months for comparison [facility] Prophylaxis: heparin SQ Diet: Heart healthy Code Status: Full Pending Studies at Discharge: No Stand-Alone Forms: [employer], Smoking Cessation Skilled Items Patient informed of condition?: Yes DNR: No Discharge Level of Care: Acute rehab Communicable Disease: No Discharge Prognosis: Improving Lines: None Urinary Catheter: No Medications and DC Order Prescriptions: New aspirin 81 mg Tablet,Delayed Release (Dr/Ec) 81 mg PO QAM Qty: 30 0RF meclizine 25 mg Tablet 25 mg PO TID Qty: 30 0RF Continued cholecalciferol (vitamin D3) [Vitamin D3] 2,000 unit Capsule 2,000 unit PO QPM Elderberry 1 cap PO DAILY red beet 0 mg PO DAILY Patient Comments: 06/06- OTC unknown dose Discharge Orders: Discharge Order (Routine); Ordered 06/16/25 Ordered By: Roxane Gonzales Admission Data Admit Date/Time: 06/09/25 10:16 Attending Provider: Dano Rosas Admit Provider: Clay Akhtar Primary Care Provider: Tomas Najera Other Providers: Clay Akhtar; Dano Rosas; [place]
--- NOTE | 2025-06-16 16:06 | Hospitalist Progress Note ---
Date of Service June 16, 2025 Assessment & Plan (1) BPPV (benign paroxysmal positional vertigo): (2) Saccular aneurysm: Plan Pt is an 89 yo male, PMH hypertension, presenting with dizziness on 06/06. # vertigo -acutely BPPV superimposed on chronic (from proprioceptive deficit b/l LE) -PT/OT eval and treat -ideally would be at SNF/rehab at this time, but his insurance is unconscionably callous with his disposition - despite clearly appearing that he would benefit from some sort of rehab setting and being a previously quite functional 89yo male, they opted to treat his situation as a piece of bureaucracy rather than a human being and initially take frustratingly long to respond followed by requesting a peer to peer - once this was discussed and auth was approved, it was approved on a monday (06/13) with a limited time attached to it that rendered it meaningless since many facilities don't take new patients on weekends (outside of our control or the patient's control, but arbitrarily kept as a deadline by insurance) and now they will require a new authorization to approve SNF (which i harbor sincere concerns they will deny again and potentially deny a peer to peer given that there is no promise they will follow the same pathway they did last week) - all of which has cost the patient additional needless time in the hospital (he is unsafe to be home but would get far more benefit being in an environment with more rehab resources); fortunately he's avoided nosocomial infections or other hospital related complications, but should he suffer any ill consequences due to these needless insurance mediated delays, i would hold suman responsible. 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 A short segment dissection is considered less likely. Plan i. aspirin PO 81mg daily ii. conservative management for now iii. Follow up in outpt setting iii. consider reimaging in 6 months for comparison [facility] Prophylaxis: heparin SQ Diet: Heart healthy Code Status: Full Admission and Anticipated Discharge Date Admission Date: June 09, 2025 Subjective was for SNF today, but then informed that insurance auth obtained 06/13 is already no longer valid and new auth will need to be obtained. still unsteady Review of Systems Review of Systems: All systems reviewed & are unremarkable except as noted in HPI & below Physical Exam Physical Exam: gen aaox3 pleasant nad heent nc at mmm breathing unlabored no accessory muscles good effort skin no rashes no pallor or icterus Results & Data Results & Data Vital Signs (Past 12 Hours) Vital Signs Temp Pulse Resp BP Pulse Ox O2 Del Method 06/16/25 15:05 98.2 F 69 16 127/81 95 Room Air 06/16/25 07:47 97.3 F L 66 18 148/87 H 97 Room Air PG Care Time/CCT Total # of Minutes Spent Total Time Spent with Patient: Total time spent is greater than 50% in coordination of care (as documented) at patient's floor/unit and/or counseling patient: Coding Level of Care Code 58765 SUB INP/OBS CARE 2/35MIN Diagnoses Benign paroxysmal positional vertigo, unspecified laterality H81.10 Laterality: unspecified laterality Saccular aneurysm I67.1 (1) BPPV (benign paroxysmal positional vertigo) Laterality: unspecified laterality Qualified Code(s): H81.10 - Benign paroxysmal vertigo, unspecified ear
--- NOTE | 2025-06-17 12:22 | Hospitalist Progress Note ---
Date of Service June 17, 2025 Assessment & Plan (1) BPPV (benign paroxysmal positional vertigo): (2) Saccular aneurysm: Plan Plan Pt is an 89 yo male, PMH hypertension, presenting with dizziness on 06/06, patient found with BPPV and bilateral lower weakness # BBP (Benign Paroxysmal Positional Vertigo) - Patient presented with vertigo - Brain MRI. 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 A short segment dissection is considered less likely. - ECG: Sinus bradycardia with 1st degree A-V block. - Continue Meclizine 25mg PO TID - Patient has no complaints overnight and medically is ready to discharge. Right now we are waiting for his insurance to cover skilled rehab facility. 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 A short segment dissection is considered less likely - Started on aspirin PO 81mg daily - conservative management for now -Follow up in outpt setting -consider reimaging in 6 months for comparison [facility] Prophylaxis: heparin SQ Diet: Heart healthy Code Status: Full Admission and Anticipated Discharge Date Admission Date: June 09, 2025 Supervising Physician Co-Signing Physician Notes I personally examined the patient and verified all rincon points of history and exam, discussed case, and agree with decision making with Dr Gonzales feeling about the same. insurance requesting peer to peer again vitals noted nad heent nc at mmm breathing unlabored no accessory muscles good effort skin no rashes no pallor or icterus vertigo - BPPV and proprioceptive deficit -would benefit from ongoing PT/OT at rehab or SNF, insurance creating needless hurdles and escalating his risk. otherwise as above Subjective Pt scheduled for SNF Monday, but then informed that insurance auth obtained 06/13 is already no longer valid and new auth will need to be obtained. Still unsteady. -At bedside, pt's disposition is stable, and he is pleasant as usual. No significant overnight events. No dizziness in the supine position or while sitting up. Absent fever, chills, nausea, vomiting. No Headaches, Visual disturbances, Dizziness, or Chest Pain on exam. No pain on palpation of abdomen with light and heavy touch. Mood is stable. Negative symptoms on urination and stool. Results & Data Results & Data Vital Signs (Past 12 Hours) Vital Signs Temp Pulse Resp BP Pulse Ox O2 Del Method 06/17/25 07:05 36.6 C 58 L 16 158/77 H 98 Room Air (1) BPPV (benign paroxysmal positional vertigo) Laterality: unspecified laterality Qualified Code(s): H81.10 - Benign paroxysmal vertigo, unspecified ear
--- NOTE | 2025-06-17 14:58 | Billing Data ---
Date of Service June 17, 2025 Coding Level of Care Code 45861 SUB INP/OBS CARE
[2025-06-18 07:44] VITALS: BP 128/75; RESP 16; TEMP 97.9; O2SAT 98
[2025-06-18 10:32] VITALS: PULSE 60
--- NOTE | 2025-06-18 18:21 | Billing Data ---
Date of Service June 18, 2025 Coding Level of Care Code 89222 IN/OBS DISCH 30 MIN/LESS
== END 2025-06-18 13:13 | disposition home health service (06) | DRG 149 ==
LOC: ED 09:35 → 3W 09:35 → SUATTDRO 12:38 → 3W 15:46 → SUATTDRO 06-09 10:16